=== PATIENT | female | born 1975 | race Two or more races ===

== ENCOUNTER 2018-04-06 15:51 | Inpatient (IN) | payer SELFPAY ==
[~2018-04-06] VITALS: Ht 172.7 cm; Wt 80.8 kg
--- NOTE | 2018-04-06 17:07 | PHYS DOC ---
Past Medical History Past Medical History: Alcoholism, Hypertension Past Surgical History: No Surgical History Alcohol Use: Heavy Drug Use: None Social History Narrative: denies Adult General Chief Complaint Chief Complaint: ALCOHOL INTOXICATION HPI HPI 42-year-old female with history of alcoholism presents for evaluation of acute intoxication. Patient states she has "been on a franks for a month and a half". She reports prior to that had been sober for over a year. She is asking for detox assistance. Denies other concerns. She reports drink 1-1/2 pints of vodka , last drink was at approximately 2 PM today. She does have history of seizures with detox. Review of Systems Review of Systems Constitutional: Denies fever or chills [] Eyes: Denies change in visual acuity, redness, or eye pain [] HENT: Denies nasal congestion or sore throat [] Respiratory: Denies cough or shortness of breath [] Cardiovascular: No additional information not addressed in HPI [] Endocrine: Denies polyuria or polydipsia [] All other systems were reviewed and found to be within normal limits, except as documented in this note. Current Medications Current Medications Current Medications Medications (Trade) Dose Ordered Sig/Yolanda Start Time Stop Time Status Last Admin Dose Admin Ondansetron HCl (Zofran) 4 mg 1X ONCE 04/06/18 17:15 04/06/18 17:16 DC 04/06/18 17:24 4 MG Sodium Chloride 1,000 ml @ 1,000 mls/hr 1X ONCE 04/06/18 17:15 04/06/18 18:14 DC 04/06/18 17:22 1,000 MLS/HR Allergies Allergies Allergies Coded Allergies Type Severity Reaction Last Updated Verified No Known Drug Allergies 04/06/18 No Physical Exam Physical Exam Constitutional: Well developed, well nourished, no acute distress, non-toxic appearance. [] Neck: Normal range of motion, no tenderness, supple, no stridor. [] Cardiovascular:Heart regular rhythm, TACHYCARDIC, no murmur [] Lungs & Thorax: Bilateral breath sounds clear to auscultation [] Abdomen: Bowel sounds normal, soft, no tenderness, no masses, no pulsatile masses. [] Skin: Warm, dry, no erythema, no rash. [] Neurologic: Alert and oriented X 3, normal motor function, normal sensory function, no focal deficits noted. [] Psychologic: Affect normal, judgement normal, mood normal. [] Current Patient Data Vital Signs Vital Signs Date Time Temp Pulse Resp B/P (MAP) Pulse Ox O2 Delivery O2 Flow Rate FiO2 04/06/18 17:26 114 20 160/93 (115) 98 Nasal Cannula 2.0 04/06/18 16:14 99.7 99.7 Lab Values Laboratory Tests Test 04/06/18 17:00 White Blood Count 8.0 x10^3/uL (4.0-11.0) Red Blood Count 4.64 x10^6/uL (3.50-5.40) Hemoglobin 14.2 g/dL (12.0-15.5) Hematocrit 42.1 % (36.0-47.0) Mean Corpuscular Volume 91 fL (79-100) Mean Corpuscular Hemoglobin 31 pg (25-35) Mean Corpuscular Hemoglobin Concent 34 g/dL (31-37) Red Cell Distribution Width 17.9 % (11.5-14.5) H Platelet Count 236 x10^3/uL (140-400) Neutrophils (%) (Auto) 63 % (31-73) Lymphocytes (%) (Auto) 28 % (24-48) Monocytes (%) (Auto) 7 % (0-9) Eosinophils (%) (Auto) 0 % (0-3) Basophils (%) (Auto) 2 % (0-3) Neutrophils # (Auto) 5.1 x10^3uL (1.8-7.7) Lymphocytes # (Auto) 2.3 x10^3/uL (1.0-4.8) Monocytes # (Auto) 0.6 x10^3/uL (0.0-1.1) Eosinophils # (Auto) 0.0 x10^3/uL (0.0-0.7) Basophils # (Auto) 0.1 x10^3/uL (0.0-0.2) Sodium Level 143 mmol/L (136-145) Potassium Level 3.8 mmol/L (3.5-5.1) Chloride Level 99 mmol/L (98-107) Carbon Dioxide Level 24 mmol/L (21-32) Anion Gap 20 (6-14) H Blood Urea Nitrogen 22 mg/dL (7-20) H Creatinine 0.9 mg/dL (0.6-1.0) Estimated GFR (Cockcroft-Gault) 68.0 BUN/Creatinine Ratio 24 (6-20) H Glucose Level 89 mg/dL (70-99) Calcium Level 8.9 mg/dL (8.5-10.1) Total Bilirubin 0.3 mg/dL (0.2-1.0) Aspartate Amino Transferase (AST) 80 U/L (15-37) H Alanine Aminotransferase (ALT) 80 U/L (14-59) H Alkaline Phosphatase 111 U/L (46-116) Total Protein 8.7 g/dL (6.4-8.2) H Albumin 4.4 g/dL (3.4-5.0) Albumin/Globulin Ratio 1.0 (1.0-1.7) Salicylates Level < 2.8 mg/dL (2.8-20.0) L Salicylate Last Dose Date Unk Salicylate Last Dose Time Unk Acetaminophen Level < 2 mcg/ml (10-30) L Acetaminophen Last Dose Date Unk Acetaminophen Last Dose Time Unk Ethyl Alcohol Level 317 mg/dL (0-10) H Laboratory Tests 04/06/18 17:00 Laboratory Tests 04/06/18 17:00 EKG EKG [] Radiology/Procedures Radiology/Procedures [] Course & Med Decision Making Course & Med Decision Making Pertinent Labs and Imaging studies reviewed. (See chart for details) [PATS consult done in the emergency room, because patient has had a seizure in the past for detox, patient will need to be admitted for medical clearance. Alcohol level at this time is 317. Patient agrees with and understands need for admission. Spoke c Dr Jensen who admitted pt] Dragon Disclaimer Dragon Disclaimer This electronic medical record was generated, in whole or in part, using a voice recognition dictation system. Departure Departure Impression: Primary Impression: Alcohol intoxication Disposition: ADMITTED INPATIENT Condition: STABLE Referrals: MARIAELENA JENSEN MD Scripts No Active Prescriptions or Reported Meds CARRINGTON LINK APRN Apr 06, 2018 17:07
[2018-04-06] MEDS ORDERED: IV NORMAL SALINE 1000ML BAG 1,000 ML IV ONE (17:15)
[2018-04-06] MEDS ORDERED: ONDANSETRON PF 4 MG/2 ML VIAL. IV ONE (17:15)
[2018-04-06 17:17] LABS: BASO # 0.1 x10^3/uL (0.0-0.2); BASO % 2 % (0-3); EOS % 0 % (0-3); HEMATOCRIT 42.1 % (36.0-47.0); HEMOGLOBIN 14.2 g/dL (12.0-15.5); LYMPH # 2.3 x10^3/uL (1.0-4.8); LYMPH % 28 % (24-48); MEAN CORPUSCULAR HEMOGLOBIN 31 pg (25-35); MEAN CORPUSCULAR HGB CONC 34 g/dL (31-37); MEAN CORPUSCULAR VOLUME 91 fL (79-100); MONO # 0.6 x10^3/uL (0.0-1.1); MONO % 7 % (0-9); NEUT # 5.1 x10^3uL (1.8-7.7); NEUT % 63 % (31-73); PLATELET COUNT 236 x10^3/uL (140-400); RED BLOOD COUNT 4.64 x10^6/uL (3.50-5.40); RED CELL DISTRIBUTION WIDTH 17.9 % (11.5-14.5)
[2018-04-06 17:32] LABS: CALCIUM 8.9 mg/dL (8.5-10.1); CREATININE 0.9 mg/dL (0.6-1.0); POTASSIUM 3.8 mmol/L (3.5-5.1)
[2018-04-06 17:44] LABS: ALBUMIN 4.4 g/dL (3.4-5.0); TOTAL BILIRUBIN 0.3 mg/dL (0.2-1.0); TOTAL PROTEIN 8.7 g/dL (6.4-8.2)
[2018-04-06 17:49] LABS: ACETAMIN < 2 mcg/ml (10-30); ETHANOL 317 mg/dL (0-10); SALIC < 2.8 mg/dL (2.8-20.0)
[2018-04-06] MEDS ORDERED: ONDANSETRON PF 4 MG/2 ML VIAL. IV PRN ×2 (18:45→21:00)
[2018-04-06 19:59] LABS: BARBITURATES NEG (NEG); BENZODIAZEPINES NEG (NEG); CANNABINOIDS NEG (NEG); COCAINE NEG (NEG); METHADONE NEG (NEG); OPIATES POS (NEG); PHENCYCLIDINE NEG (NEG)
[2018-04-06 20:00] LABS: AMPHETAMINE/METHAMPHETAMINE POS (NEG)
[2018-04-06 20:30] VITALS: BP 161/99
[2018-04-06] MEDS: SENNOSIDES/DOCUSATE 8.6/50MG TABLET. PO SCH (21:00)
[2018-04-06] MEDS ORDERED: LACTULOSE 20 GM/30 ML SOLUTION. PO PRN (21:00)
[2018-04-06] MEDS ORDERED: cloNIDine HCL 0.1 MG TABLET PO PRN (21:00)
[2018-04-06] MEDS: HEPARIN for SUB-Q USE 5,000 UNIT/ML VIAL. SQ SCH (21:00)
[2018-04-06] MEDS ORDERED: LABETALOL 20 MG/4 ML DISP.SYRIN. IVP PRN (21:00)
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
[2018-04-06 22:33] VITALS: BP 123/87
[2018-04-06] MEDS: MULTIVIT INFUSN,ADULT 4,VIT K 10 ML, THIAMINE INJ 100 MG, FOLIC ACID INJ 1 MG in IV NOR... IV SCH (23:03)
[2018-04-07] VITALS (7 sets, daily range): BP systolic 128–160; BP diastolic 84–99
[2018-04-07] MEDS: LORazepam 1 MG TABLET PO PRN ×4 (04:28→20:34)
[2018-04-07 06:35] LABS: CREATININE 0.6 mg/dL (0.6-1.0); GFR 108.6; POTASSIUM 3.2 mmol/L (3.5-5.1)
[2018-04-07] MEDS ORDERED: POTASSIUM CHLORIDE 20 MEQ TABLET.ER. PO ONE (08:45)
[2018-04-07] MEDS: MULTIVIT INFUSN,ADULT 4,VIT K 10 ML, THIAMINE INJ 100 MG, FOLIC ACID INJ 1 MG in IV NOR... IV SCH (09:03)
[2018-04-07] MEDS: HEPARIN for SUB-Q USE 5,000 UNIT/ML VIAL. SQ SCH ×2 (09:03→20:34)
[2018-04-07] MEDS: SENNOSIDES/DOCUSATE 8.6/50MG TABLET. PO SCH ×2 (09:04→20:34)
[2018-04-07] MEDS: ACETAMINOPHEN 325 MG TABLET. PO PRN ×2 (09:09→15:56)
--- NOTE | 2018-04-07 11:21 | PDOC ---
PROGRESS NOTES Chief Complaint Chief Complaint Alcohol withdrawal - ready/eager to quit Alcohol intoxication - IVF, banana bag x5. PAT team for ETOH abuse resources Amphetamine intoxication - she is unaware of amphetamine use per history. Will use clonidine, ativan Heroin intoxication - not overdose, will monitor. warm compress to left AC fossa HTN Urgency History of Present Illness History of Present Illness Still very drowsy, has not ambulated Ate only 20% Falls asleep in my interaction today with her Alcohol levels 317 Potassium low at 3.2 Plan: KCl 40 by mouth 1 PT OT when more awake Not ready to discharge today as very sleepy, has not ambulated She drinks 1.5-2 vodkas every day She does not want to lose her son-resources for AA referral has been given Seemingly interested to quit etoh Vitals Vitals Vital Signs Date Time Temp Pulse Resp B/P (MAP) Pulse Ox O2 Delivery O2 Flow Rate FiO2 04/07/18 10:37 97.5 102 20 137/86 (103) 97 Room Air 97.5 04/06/18 18:49 2.0 Physical Exam General: No acute distress, Other (Drowsy) Heart: Regular rate, Normal S1, Normal S2, Other (slightly tachycardic) Lungs: Clear Abdomen: Normal bowel sounds, Soft, No tenderness, No hepatosplenomegaly, No masses Extremities: No clubbing, No edema, Normal pulses, Other (left AC fossa with thrombophlebitis) Skin: No rashes, No breakdown, No significant lesion, Other (Left AC fossa red) Labs LABS Laboratory Tests Test 04/06/18 17:00 04/06/18 19:35 04/06/18 19:41 04/07/18 05:30 White Blood Count 8.0 x10^3/uL (4.0-11.0) Red Blood Count 4.64 x10^6/uL (3.50-5.40) Hemoglobin 14.2 g/dL (12.0-15.5) Hematocrit 42.1 % (36.0-47.0) Mean Corpuscular Volume 91 fL (79-100) Mean Corpuscular Hemoglobin 31 pg (25-35) Mean Corpuscular Hemoglobin Concent 34 g/dL (31-37) Red Cell Distribution Width 17.9 % (11.5-14.5) Platelet Count 236 x10^3/uL (140-400) Neutrophils (%) (Auto) 63 % (31-73) Lymphocytes (%) (Auto) 28 % (24-48) Monocytes (%) (Auto) 7 % (0-9) Eosinophils (%) (Auto) 0 % (0-3) Basophils (%) (Auto) 2 % (0-3) Neutrophils # (Auto) 5.1 x10^3uL (1.8-7.7) Lymphocytes # (Auto) 2.3 x10^3/uL (1.0-4.8) Monocytes # (Auto) 0.6 x10^3/uL (0.0-1.1) Eosinophils # (Auto) 0.0 x10^3/uL (0.0-0.7) Basophils # (Auto) 0.1 x10^3/uL (0.0-0.2) Sodium Level 143 mmol/L (136-145) 142 mmol/L (136-145) Potassium Level 3.8 mmol/L (3.5-5.1) 3.2 mmol/L (3.5-5.1) Chloride Level 99 mmol/L (98-107) 101 mmol/L (98-107) Carbon Dioxide Level 24 mmol/L (21-32) 27 mmol/L (21-32) Anion Gap 20 (6-14) 14 (6-14) Blood Urea Nitrogen 22 mg/dL (7-20) 14 mg/dL (7-20) Creatinine 0.9 mg/dL (0.6-1.0) 0.6 mg/dL (0.6-1.0) Estimated GFR (Cockcroft-Gault) 68.0 108.6 BUN/Creatinine Ratio 24 (6-20) Glucose Level 89 mg/dL (70-99) 74 mg/dL (70-99) Calcium Level 8.9 mg/dL (8.5-10.1) 8.0 mg/dL (8.5-10.1) Total Bilirubin 0.3 mg/dL (0.2-1.0) Aspartate Amino Transf (AST/SGOT) 80 U/L (15-37) Alanine Aminotransferase (ALT/SGPT) 80 U/L (14-59) Alkaline Phosphatase 111 U/L (46-116) Total Protein 8.7 g/dL (6.4-8.2) Albumin 4.4 g/dL (3.4-5.0) Albumin/Globulin Ratio 1.0 (1.0-1.7) Salicylates Level < 2.8 mg/dL (2.8-20.0) Salicylate Last Dose Date Unk Salicylate Last Dose Time Unk Acetaminophen Level < 2 mcg/ml (10-30) Acetaminophen Last Dose Date Unk Acetaminophen Last Dose Time Unk Ethyl Alcohol Level 317 mg/dL (0-10) Urine Opiates Screen Pos (NEG) Urine Methadone Screen Neg (NEG) Urine Barbiturates Neg (NEG) Urine Phencyclidine Screen Neg (NEG) Urine Amphetamine/Methamphetamine Pos (NEG) Urine Benzodiazepines Screen Neg (NEG) Urine Cocaine Screen Neg (NEG) Urine Cannabinoids Screen Neg (NEG) Urine Ethyl Alcohol Pos (NEG) Bedside Urine HCG, Qualitative Hcg negative (Negative) Review of Systems Review of Systems drowsy hence limited ROS Assessment and Plan Assessmemt and Plan Problems Medical Problems: (1) Alcohol intoxication Status: Acute Comment Review of Relevant I have reviewed the following items sandra (where applicable) has been applied. Labs Laboratory Tests Test 04/06/18 17:00 04/06/18 19:35 04/06/18 19:41 04/07/18 05:30 White Blood Count 8.0 x10^3/uL (4.0-11.0) Red Blood Count 4.64 x10^6/uL (3.50-5.40) Hemoglobin 14.2 g/dL (12.0-15.5) Hematocrit 42.1 % (36.0-47.0) Mean Corpuscular Volume 91 fL (79-100) Mean Corpuscular Hemoglobin 31 pg (25-35) Mean Corpuscular Hemoglobin Concent 34 g/dL (31-37) Red Cell Distribution Width 17.9 % (11.5-14.5) Platelet Count 236 x10^3/uL (140-400) Neutrophils (%) (Auto) 63 % (31-73) Lymphocytes (%) (Auto) 28 % (24-48) Monocytes (%) (Auto) 7 % (0-9) Eosinophils (%) (Auto) 0 % (0-3) Basophils (%) (Auto) 2 % (0-3) Neutrophils # (Auto) 5.1 x10^3uL (1.8-7.7) Lymphocytes # (Auto) 2.3 x10^3/uL (1.0-4.8) Monocytes # (Auto) 0.6 x10^3/uL (0.0-1.1) Eosinophils # (Auto) 0.0 x10^3/uL (0.0-0.7) Basophils # (Auto) 0.1 x10^3/uL (0.0-0.2) Sodium Level 143 mmol/L (136-145) 142 mmol/L (136-145) Potassium Level 3.8 mmol/L (3.5-5.1) 3.2 mmol/L (3.5-5.1) Chloride Level 99 mmol/L (98-107) 101 mmol/L (98-107) Carbon Dioxide Level 24 mmol/L (21-32) 27 mmol/L (21-32) Anion Gap 20 (6-14) 14 (6-14) Blood Urea Nitrogen 22 mg/dL (7-20) 14 mg/dL (7-20) Creatinine 0.9 mg/dL (0.6-1.0) 0.6 mg/dL (0.6-1.0) Estimated GFR (Cockcroft-Gault) 68.0 108.6 BUN/Creatinine Ratio 24 (6-20) Glucose Level 89 mg/dL (70-99) 74 mg/dL (70-99) Calcium Level 8.9 mg/dL (8.5-10.1) 8.0 mg/dL (8.5-10.1) Total Bilirubin 0.3 mg/dL (0.2-1.0) Aspartate Amino Transf (AST/SGOT) 80 U/L (15-37) Alanine Aminotransferase (ALT/SGPT) 80 U/L (14-59) Alkaline Phosphatase 111 U/L (46-116) Total Protein 8.7 g/dL (6.4-8.2) Albumin 4.4 g/dL (3.4-5.0) Albumin/Globulin Ratio 1.0 (1.0-1.7) Salicylates Level < 2.8 mg/dL (2.8-20.0) Salicylate Last Dose Date Unk Salicylate Last Dose Time Unk Acetaminophen Level < 2 mcg/ml (10-30) Acetaminophen Last Dose Date Unk Acetaminophen Last Dose Time Unk Ethyl Alcohol Level 317 mg/dL (0-10) Urine Opiates Screen Pos (NEG) Urine Methadone Screen Neg (NEG) Urine Barbiturates Neg (NEG) Urine Phencyclidine Screen Neg (NEG) Urine Amphetamine/Methamphetamine Pos (NEG) Urine Benzodiazepines Screen Neg (NEG) Urine Cocaine Screen Neg (NEG) Urine Cannabinoids Screen Neg (NEG) Urine Ethyl Alcohol Pos (NEG) Bedside Urine HCG, Qualitative Hcg negative (Negative) Laboratory Tests Test 04/06/18 17:00 04/06/18 19:35 04/06/18 19:41 04/07/18 05:30 White Blood Count 8.0 x10^3/uL (4.0-11.0) Red Blood Count 4.64 x10^6/uL (3.50-5.40) Hemoglobin 14.2 g/dL (12.0-15.5) Hematocrit 42.1 % (36.0-47.0) Mean Corpuscular Volume 91 fL (79-100) Mean Corpuscular Hemoglobin 31 pg (25-35) Mean Corpuscular Hemoglobin Concent 34 g/dL (31-37) Red Cell Distribution Width 17.9 % (11.5-14.5) Platelet Count 236 x10^3/uL (140-400) Neutrophils (%) (Auto) 63 % (31-73) Lymphocytes (%) (Auto) 28 % (24-48) Monocytes (%) (Auto) 7 % (0-9) Eosinophils (%) (Auto) 0 % (0-3) Basophils (%) (Auto) 2 % (0-3) Neutrophils # (Auto) 5.1 x10^3uL (1.8-7.7) Lymphocytes # (Auto) 2.3 x10^3/uL (1.0-4.8) Monocytes # (Auto) 0.6 x10^3/uL (0.0-1.1) Eosinophils # (Auto) 0.0 x10^3/uL (0.0-0.7) Basophils # (Auto) 0.1 x10^3/uL (0.0-0.2) Sodium Level 143 mmol/L (136-145) 142 mmol/L (136-145) Potassium Level 3.8 mmol/L (3.5-5.1) 3.2 mmol/L (3.5-5.1) Chloride Level 99 mmol/L (98-107) 101 mmol/L (98-107) Carbon Dioxide Level 24 mmol/L (21-32) 27 mmol/L (21-32) Anion Gap 20 (6-14) 14 (6-14) Blood Urea Nitrogen 22 mg/dL (7-20) 14 mg/dL (7-20) Creatinine 0.9 mg/dL (0.6-1.0) 0.6 mg/dL (0.6-1.0) Estimated GFR (Cockcroft-Gault) 68.0 108.6 BUN/Creatinine Ratio 24 (6-20) Glucose Level 89 mg/dL (70-99) 74 mg/dL (70-99) Calcium Level 8.9 mg/dL (8.5-10.1) 8.0 mg/dL (8.5-10.1) Total Bilirubin 0.3 mg/dL (0.2-1.0) Aspartate Amino Transf (AST/SGOT) 80 U/L (15-37) Alanine Aminotransferase (ALT/SGPT) 80 U/L (14-59) Alkaline Phosphatase 111 U/L (46-116) Total Protein 8.7 g/dL (6.4-8.2) Albumin 4.4 g/dL (3.4-5.0) Albumin/Globulin Ratio 1.0 (1.0-1.7) Salicylates Level < 2.8 mg/dL (2.8-20.0) Salicylate Last Dose Date Unk Salicylate Last Dose Time Unk Acetaminophen Level < 2 mcg/ml (10-30) Acetaminophen Last Dose Date Unk Acetaminophen Last Dose Time Unk Ethyl Alcohol Level 317 mg/dL (0-10) Urine Opiates Screen Pos (NEG) Urine Methadone Screen Neg (NEG) Urine Barbiturates Neg (NEG) Urine Phencyclidine Screen Neg (NEG) Urine Amphetamine/Methamphetamine Pos (NEG) Urine Benzodiazepines Screen Neg (NEG) Urine Cocaine Screen Neg (NEG) Urine Cannabinoids Screen Neg (NEG) Urine Ethyl Alcohol Pos (NEG) Bedside Urine HCG, Qualitative Hcg negative (Negative) Medications Current Medications Sodium Chloride 1,000 ml @ 1,000 mls/hr 1X ONCE IV Last administered on 04/06at 17:22; Start 04/06/18 at 17:15; Stop 04/06/18 at 18:14; Status DC Ondansetron HCl (Zofran) 4 mg 1X ONCE IV Last administered on 04/06/18at 17:24 ; Start 04/06/18 at 17:15; Stop 04/06/18 at 17:16; Status DC Ondansetron HCl (Zofran) 4 mg PRN Q8HRS PRN IV NAUSEA/VOMITING; Start at 18:45; Stop 04/07/18 at 18:44 Ondansetron HCl (Zofran) 4 mg PRN Q6HRS PRN IV NAUSEA/VOMITING; Start at 21:00 Acetaminophen (Tylenol) 650 mg PRN Q6HRS PRN PO Headaches, Temp > 101.5F Last administered on 04/07/18at 09:09; Start 04/06/18 at 21:00 Senna/Docusate Sodium (Senna Plus) 1 tab BID PO ; Start 04/06/18 at 21:00 Lactulose (Lactulose) 20 gm PRN Q12HR PRN PO CONSTIPATION; Start 04/06/18 at 21:00 Heparin Sodium (Porcine) (Heparin Sodium) 5,000 unit Q12HR SQ ; Start 04/06/18 at 21:00 Multivitamins 10 ml/Thiamine HCl 100 mg/Folic Acid 1 mg/Sodium Chloride 1,011.2 ml @ 100 mls/ hr DAILY IV Last administered on 04/07/18at 09:03; Start at 23:00; Stop 04/10/18 at 19:07 Lorazepam (Ativan) 4 mg PRN Q1HR PRN PO For CIWA 8-14 Last administered on at 09:10; Start 04/06/18 at 21:00 Lorazepam (Ativan) 4 mg PRN Q1HR PRN IV For CIWA 15 or greater Last administered on 04/06/18at 21:12; Start 04/06/18 at 21:00 Clonidine HCl (Catapres) 0.1 mg PRN Q1HR PRN PO SBP > 180 or DBP > 100, MRX3; Start 04/06/18 at 21:00 Labetalol HCl (Normodyne Iv Push) 10 mg PRN Q2HR PRN IVP HYPERTENSION, SEE COMMENTS; Start 04/06/18 at 21:00 Potassium Chloride (Klor-Con) 40 meq 1X ONCE PO Last administered on at 09:02; Start 04/07/18 at 08:45; Stop 04/07/18 at 08:46; Status DC Active Scripts Active No Active Prescriptions or Reported Medications Vitals/I & O Vital Sign - Last 24 Hours 04/06/18 04/06/18 04/06/18 04/06/18 16:14 17:26 18:49 19:50 Temp 99.7 99.7 Pulse 119 114 109 104 Resp 20 20 16 18 B/P (MAP) 139/95 (110) 160/93 (115) 165/95 (118) 167/102 (123) Pulse Ox 98 97 97 O2 Delivery Room Air Nasal Cannula Nasal Cannula Room Air O2 Flow Rate 2.0 2.0 04/06/18 04/06/18 04/06/18 04/07/18 20:30 20:49 22:33 03:04 Temp 98.5 97.7 98.1 98.5 97.7 98.1 Pulse 99 105 104 Resp 18 18 19 B/P (MAP) 161/99 (119) 123/87 (99) 160/99 (119) Pulse Ox 93 96 98 O2 Delivery Room Air Room Air Room Air Room Air 04/07/18 04/07/18 04/07/18 03:25 07:00 10:37 Temp 97.6 97.5 97.6 97.5 Pulse 90 87 102 Resp 18 20 B/P (MAP) 128/84 (99) 138/99 (112) 137/86 (103) Pulse Ox 98 97 O2 Delivery Room Air Room Air Intake and Output 04/06/18 04/06/18 04/07/18 15:00 23:00 07:00 Intake Total 1000 ml 500 ml Output Total 400 ml Balance 600 ml 500 ml MEGHANN DE LEON MD Apr 07, 2018 11:21
[2018-04-08 03:00] VITALS: BP 132/96
[2018-04-08 05:53] LABS: CALCIUM 8.8 mg/dL (8.5-10.1); CREATININE 0.6 mg/dL (0.6-1.0); GFR 108.6; POTASSIUM 3.2 mmol/L (3.5-5.1)
[2018-04-08 07:00] VITALS: BP 131/84
[2018-04-08] MEDS: MULTIVIT INFUSN,ADULT 4,VIT K 10 ML, THIAMINE INJ 100 MG, FOLIC ACID INJ 1 MG in IV NOR... IV SCH (08:35)
[2018-04-08] MEDS: LORazepam 1 MG TABLET PO PRN ×2 (08:35→12:22)
[2018-04-08] MEDS: HEPARIN for SUB-Q USE 5,000 UNIT/ML VIAL. SQ SCH (08:36)
[2018-04-08] MEDS: SENNOSIDES/DOCUSATE 8.6/50MG TABLET. PO SCH (08:36)
[2018-04-08] MEDS ORDERED: CHLO1CAP PO (08:51)
[2018-04-08] MEDS ORDERED: POTASSIUM CHLORIDE 20 MEQ TABLET.ER. PO ONE (09:00)
--- NOTE | 2018-04-08 10:43 | PDOC3 ---
Discharge Summary Visit Information Date of Admission: Apr 06, 2018 Date of Discharge: Apr 08, 2018 Admitting Diagnosis Comment: Alcohol withdrawal - ready/eager to quit Amphetamine positive HTN Urgency Final Diagnosis Problems Medical Problems: (1) Alcohol intoxication Status: Acute Brief Hospital Course Allergies Allergies Coded Allergies Type Severity Reaction Last Updated Verified No Known Drug Allergies 04/06/18 No Vital Signs Vital Signs Date Time Temp Pulse Resp B/P (MAP) Pulse Ox O2 Delivery O2 Flow Rate FiO2 04/08/18 07:00 97.7 85 20 131/84 (100) 98 Room Air 97.7 Lab Results Laboratory Tests Test 04/06/18 17:00 04/06/18 19:35 04/06/18 19:41 04/07/18 05:30 White Blood Count 8.0 x10^3/uL (4.0-11.0) Red Blood Count 4.64 x10^6/uL (3.50-5.40) Hemoglobin 14.2 g/dL (12.0-15.5) Hematocrit 42.1 % (36.0-47.0) Mean Corpuscular Volume 91 fL (79-100) Mean Corpuscular Hemoglobin 31 pg (25-35) Mean Corpuscular Hemoglobin Concent 34 g/dL (31-37) Red Cell Distribution Width 17.9 % (11.5-14.5) Platelet Count 236 x10^3/uL (140-400) Neutrophils (%) (Auto) 63 % (31-73) Lymphocytes (%) (Auto) 28 % (24-48) Monocytes (%) (Auto) 7 % (0-9) Eosinophils (%) (Auto) 0 % (0-3) Basophils (%) (Auto) 2 % (0-3) Neutrophils # (Auto) 5.1 x10^3uL (1.8-7.7) Lymphocytes # (Auto) 2.3 x10^3/uL (1.0-4.8) Monocytes # (Auto) 0.6 x10^3/uL (0.0-1.1) Eosinophils # (Auto) 0.0 x10^3/uL (0.0-0.7) Basophils # (Auto) 0.1 x10^3/uL (0.0-0.2) Sodium Level 143 mmol/L (136-145) 142 mmol/L (136-145) Potassium Level 3.8 mmol/L (3.5-5.1) 3.2 mmol/L (3.5-5.1) Chloride Level 99 mmol/L (98-107) 101 mmol/L (98-107) Carbon Dioxide Level 24 mmol/L (21-32) 27 mmol/L (21-32) Anion Gap 20 (6-14) 14 (6-14) Blood Urea Nitrogen 22 mg/dL (7-20) 14 mg/dL (7-20) Creatinine 0.9 mg/dL (0.6-1.0) 0.6 mg/dL (0.6-1.0) Estimated GFR (Cockcroft-Gault) 68.0 108.6 BUN/Creatinine Ratio 24 (6-20) Glucose Level 89 mg/dL (70-99) 74 mg/dL (70-99) Calcium Level 8.9 mg/dL (8.5-10.1) 8.0 mg/dL (8.5-10.1) Total Bilirubin 0.3 mg/dL (0.2-1.0) Aspartate Amino Transf (AST/SGOT) 80 U/L (15-37) Alanine Aminotransferase (ALT/SGPT) 80 U/L (14-59) Alkaline Phosphatase 111 U/L (46-116) Total Protein 8.7 g/dL (6.4-8.2) Albumin 4.4 g/dL (3.4-5.0) Albumin/Globulin Ratio 1.0 (1.0-1.7) Salicylates Level < 2.8 mg/dL (2.8-20.0) Salicylate Last Dose Date Unk Salicylate Last Dose Time Unk Acetaminophen Level < 2 mcg/ml (10-30) Acetaminophen Last Dose Date Unk Acetaminophen Last Dose Time Unk Ethyl Alcohol Level 317 mg/dL (0-10) Urine Opiates Screen Pos (NEG) Urine Methadone Screen Neg (NEG) Urine Barbiturates Neg (NEG) Urine Phencyclidine Screen Neg (NEG) Urine Amphetamine/Methamphetamine Pos (NEG) Urine Benzodiazepines Screen Neg (NEG) Urine Cocaine Screen Neg (NEG) Urine Cannabinoids Screen Neg (NEG) Urine Ethyl Alcohol Pos (NEG) Bedside Urine HCG, Qualitative Hcg negative (Negative) Test 04/08/18 05:07 Sodium Level 140 mmol/L (136-145) Potassium Level 3.2 mmol/L (3.5-5.1) Chloride Level 101 mmol/L (98-107) Carbon Dioxide Level 29 mmol/L (21-32) Anion Gap 10 (6-14) Blood Urea Nitrogen 13 mg/dL (7-20) Creatinine 0.6 mg/dL (0.6-1.0) Estimated GFR (Cockcroft-Gault) 108.6 Glucose Level 118 mg/dL (70-99) Calcium Level 8.8 mg/dL (8.5-10.1) Laboratory Tests Test 04/08/18 05:07 Sodium Level 140 mmol/L (136-145) Potassium Level 3.2 mmol/L (3.5-5.1) Chloride Level 101 mmol/L (98-107) Carbon Dioxide Level 29 mmol/L (21-32) Anion Gap 10 (6-14) Blood Urea Nitrogen 13 mg/dL (7-20) Creatinine 0.6 mg/dL (0.6-1.0) Estimated GFR (Cockcroft-Gault) 108.6 Glucose Level 118 mg/dL (70-99) Calcium Level 8.8 mg/dL (8.5-10.1) Brief Hospital Course Ms. Nicole is a 42 old female who unfortunately drinks 1.5 vodka Every day, admitted because of alcohol withdrawal symptoms. She does want to quit, she does not want to lose her son. She is interested in alcohol rehabilitation programs. We have provided resources. It took 2 days for her to not be confused and drowsy. I did Rx her some Librax. Rx on chart Patient seen and examined, dc < 30 mins Discharge Information Condition at Discharge: Improved, Stable Disposition/Orders: D/C to Home Scheduled Chlordiazepoxide/Clidinium Br (Librax Capsule) 1 Each Capsule, 1 CAP PO TID, # 30 Ref 3 Prescribed by: MEGHANN DE LEON on 04/08/18 0851 MEGHANN DE LEON MD Apr 08, 2018 10:43
[2018-04-08 11:00] VITALS: BP 161/116
== END 2018-04-08 13:02 | disposition home or self-care (01) | DRG 305 ==
LOC: ER 15:51 → 5 SOUTH 18:08 → EEVIPCON 18:08
PROVIDERS: ADMIT Internal Medicine; ATTEND Internal Medicine
DX: I16.0 Hypertensive urgency (principal); F10.239 Alcohol dependence with withdrawal, unspecified; F10.229 Alcohol dependence with intoxication, unspecified; F15.129 Other stimulant abuse with intoxication, unspecified; F17.210 Nicotine dependence, cigarettes, uncomplicated; I10 Essential (primary) hypertension
CPT/HCPCS: 36415; 80048; 80053; 80307; 80329; 81025; 85025; 96361; 96374; G0480; G6039; J2060; J2405; J7030; 99285-25; G0479

== ENCOUNTER 2019-10-08 21:44 | Inpatient (IN) | payer OTHER ==
[~2019-10-08] VITALS: Ht 172.7 cm; Wt 80.3 kg
[~2019-10-08 21:44] MED LIST: CHLO1CAP PO
--- NOTE | 2019-10-08 22:15 | PHYS DOC ---
Past Medical History Past Medical History: Alcoholism, Hypertension Past Surgical History: No Surgical History Smoking Status: Former Smoker Alcohol Use: Heavy Drug Use: None General Adult EDM: Chief Complaint: ALCOHOL INTOXICATION HPI: HPI: Patient is a 44 year old female who presents requesting for help with alcohol. Patient states that she is here for alcohol withdrawal but does indicate that she drank a large amount of alcohol today and is not sure how much. Patient has been on a binge of heavy drinking for at least the last couple of weeks, drinking vodka. Patient also indicates that she had injured her right foot about a month ago when she was walking. She is not able to give any further indicators to how was injured. Additional history is limited as patient is very intoxicated.[] Review of Systems: Review of Systems: Constitutional: Denies fever or chills. [] Respiratory: Denies cough or shortness of breath. [] Cardiovascular: Denies chest pain or edema. [] GI: Denies abdominal pain, nausea, vomiting or diarrhea. [] Neurologic: Denies headache, focal weakness or sensory changes. [] A full 10 point review of systems has been reviewed and is otherwise negative. Heart Score: Risk Factors: Risk Factors: DM, Current or recent (<one month) smoker, HTN, HLP, family history of CAD, obesity. Risk Scores: Score 0 - 3: 2.5% MACE over next 6 weeks - Discharge Home Score 4 - 6: 20.3% MACE over next 6 weeks - Admit for Clinical Observation Score 7 - 10: 72.7% MACE over next 6 weeks - Early Invasive Strategies Allergies: Allergies: Allergies Coded Allergies Type Severity Reaction Last Updated Verified No Known Drug Allergies 04/06/18 No Physical Exam: PE: Constitutional: Well developed, well nourished, strong smell of alcohol on breath and appears very intoxicated. [] HENT: Normocephalic, atraumatic, bilateral external ears normal, oropharynx moist, no oral exudates, nose normal. [] Eyes: PERRLA, EOMI, conjunctiva normal, no discharge. [] Neck: Normal range of motion, no tenderness, supple, no stridor. [] Cardiovascular: Mildly tachycardic rate with regular rhythm[] Lungs & Thorax: Bilateral breath sounds clear to auscultation [] Abdomen: Bowel sounds normal, soft, no tenderness. [] Skin: Warm, dry, no erythema, no rash. [] Extremities: No tenderness, no cyanosis, no clubbing, ROM intact, no edema. [] Neurologic: Awake and alert, intoxicated, no focal deficits noted. [] Psychologic: Flattened affect with depressed mood. [] EKG: EKG: [] Radiology/Procedures: Radiology/Procedures: [] Impression: PROCEDURE: ANKLE RIGHT 3V Right ankle x-rays 3 views HISTORY: Right ankle injury one month ago. Pain. FINDINGS: On the AP view there is a linear cortical fragment along the lateral cortex of the cuboid raise the possibility of a fracture although it is not well visualized on the foot x-rays. There is a chronic well-defined ossicle inferior the lateral malleolus likely due to an old injury. There is a cortical fragment along the dorsal aspect of the anterior talus suspicious for an acute or subacute fracture. No acute fracture of the fibula, tibia or talus dome or calcaneus. IMPRESSION: Small acute or subacute fracture fragment along the dorsal cortex of the anterior talus. Suspected small cortical fracture fragment of the cuboid. Right foot x-rays 3 views HISTORY: Right foot injury one month ago, pain. FINDINGS: Small fracture fragment dorsal cortex of the anterior talus. The remainder of the foot is intact. No dislocation. IMPRESSION: Small acute or subacute fracture fragment dorsal cortex of the anterior talus. The probable cuboid fracture fragment is seen to better detail on the dedicated ankle x-rays. Electronically signed by: Bebo Burnett MD (10/08/2019 11:48 PM) [id number] Course & Med Decision Making: Course & Med Decision Making Pertinent Labs and Imaging studies reviewed. (See chart for details) [] Dragon Disclaimer: Dragon Disclaimer: This electronic medical record was generated, in whole or in part, using a voice recognition dictation system. Departure Departure Impression: Primary Impression: Alcohol intoxication Qualified Codes: F10.929 - Alcohol use, unspecified with intoxication, unspecified Additional Impressions: Hypokalemia Fracture of talus of right ankle, closed Qualified Codes: S92.134A - Nondisplaced fracture of posterior process of right talus, initial encounter for closed fracture Cuboid fracture Qualified Codes: S92.211A - Displaced fracture of cuboid bone of right foot, initial encounter for closed fracture Disposition: 09 ADMITTED INPATIENT Admitting Physician: NIRANJAN Condition: GOOD Referrals: JOSEPHINE YANEZ MD (PCP) GUZMAN ALEJANDRO Jr. DO Oct 08, 2019 22:15
[2019-10-08 22:29] LABS: BASO # 0.1 x10^3/uL (0.0-0.2); BASO % 2 % (0-3); EOS # 0.1 x10^3/uL (0.0-0.7); EOS % 1 % (0-3); HEMATOCRIT 39.4 % (36.0-47.0); HEMOGLOBIN 12.8 g/dL (12.0-15.5); LYMPH # 3.8 x10^3/uL (1.0-4.8); LYMPH % 47 % (24-48); MEAN CORPUSCULAR HEMOGLOBIN 25 pg (25-35); MEAN CORPUSCULAR HGB CONC 32 g/dL (31-37); MEAN CORPUSCULAR VOLUME 77 fL (79-100); MONO # 0.3 x10^3/uL (0.0-1.1); MONO % 4 % (0-9); NEUT # 3.7 x10^3/uL (1.8-7.7); NEUT % 46 % (31-73); PLATELET COUNT 228 x10^3/uL (140-400); RED BLOOD COUNT 5.13 x10^6/uL (3.50-5.40); RED CELL DISTRIBUTION WIDTH 23.5 % (11.5-14.5)
[2019-10-08] MEDS ORDERED: ONDANSETRON PF 4 MG/2 ML VIAL. IVP ONE (22:30)
[2019-10-08 22:49] LABS: BILIRUBIN,URINE NEGATIVE (NEG); CLARITY,URINE CLEAR; COLOR,URINE YELLOW; NITRITE,URINE NEGATIVE (NEG); PROTEIN,URINE 30 mg/dL (NEG-TRACE); UROBILINOGEN,URINE 0.2 mg/dL (0.2 mg/dL)
[2019-10-08 22:57] LABS: BARBITURATES NEG (NEG); BENZODIAZEPINES NEG (NEG); CANNABINOIDS NEG (NEG); COCAINE NEG (NEG); METHADONE NEG (NEG); OPIATES NEG (NEG); PHENCYCLIDINE NEG (NEG)
[2019-10-08] MEDS ORDERED: MULTIVIT INFUSN,ADULT 4,VIT K 10 ML, THIAMINE INJ 100 MG, FOLIC ACID INJ 1 MG in IV NOR... IV ONE (23:00)
[2019-10-08 23:08] LABS: ALBUMIN 4.2 g/dL (3.4-5.0); CALCIUM 8.7 mg/dL (8.5-10.1); CREATININE 0.7 mg/dL (0.6-1.0); DIRECT BILIRUBIN 0.1 mg/dL (0.0-0.2); GFR 90.1; MAGNESIUM 1.8 mg/dL (1.8-2.4); TOTAL BILIRUBIN 0.5 mg/dL (0.2-1.0); TOTAL PROTEIN 8.9 g/dL (6.4-8.2)
[2019-10-08 23:14] LABS: U PREG PATIENT NEGATIVE (NEG)
[2019-10-08 23:17] LABS: BACTERIA,URINE 0 /HPF (0-FEW); RBC,URINE 0 /HPF (0-2); SQUAMOUS EPITHELIAL CELL,UR OCC /LPF; WBC,URINE 0 /HPF (0-4)
[2019-10-08 23:25] LABS: AMPHETAMINE/METHAMPHETAMINE POS (NEG)
[2019-10-08 23:43] LABS: POTASSIUM 2.8 mmol/L (3.5-5.1)
[2019-10-08] MEDS: POTASSIUM CHLORIDE 20 MEQ TABLET.ER. PO ONE (23:49)
--- NOTE | 2019-10-08 23:51 | RAD ---
Right ankle x-rays 3 views HISTORY: Right ankle injury one month ago. Pain. FINDINGS: On the AP view there is a linear cortical fragment along the lateral cortex of the cuboid raise the possibility of a fracture although it is not well visualized on the foot x-rays. There is a chronic well-defined ossicle inferior the lateral malleolus likely due to an old injury. There is a cortical fragment along the dorsal aspect of the anterior talus suspicious for an acute or subacute fracture. No acute fracture of the fibula, tibia or talus dome or calcaneus. IMPRESSION: Small acute or subacute fracture fragment along the dorsal cortex of the anterior talus. Suspected small cortical fracture fragment of the cuboid. Right foot x-rays 3 views HISTORY: Right foot injury one month ago, pain. FINDINGS: Small fracture fragment dorsal cortex of the anterior talus. The remainder of the foot is intact. No dislocation. IMPRESSION: Small acute or subacute fracture fragment dorsal cortex of the anterior talus. The probable cuboid fracture fragment is seen to better detail on the dedicated ankle x-rays. Electronically signed by: Bebo Burnett MD (10/08/2019 11:48 PM) [id number]
[2019-10-09] MEDS: POTASSIUM CHLORIDE 20 MEQ TABLET.ER. PO ONE
[2019-10-09] MEDS ORDERED: POTASSIUM CHLORIDE 20MEQ 100 ML IV ONE (00:15)
[2019-10-09] MEDS ORDERED: ONDANSETRON PF 4 MG/2 ML VIAL. IV PRN (00:15)
[2019-10-09] MEDS: POTASSIUM CHLORIDE 10MEQ 100 ML IV SCH ×2 (00:33→02:31)
[2019-10-09 00:58] LABS: HYPOCHROMIA SLIGHT; PLT ESTIMATE ADEQUATE (ADEQUATE)
[2019-10-09 00:59] LABS: MICROCYTOSIS SLIGHT; POIKILOCYTOSIS SLIGHT; STOMATOCYTES OCC
[2019-10-09 02:21] VITALS: BP 136/85
[2019-10-09] MEDS: IV NORMAL SALINE 1000ML BAG 1,000 ML IV SCH ×3 (02:31→17:34)
[2019-10-09 07:12] VITALS: BP 138/85
[2019-10-09 11:15] VITALS: BP 131/79
--- NOTE | 2019-10-09 12:03 | HP ---
ADMIT DATE: 10/09/2019 CHIEF COMPLAINT: Alcohol intoxication. HISTORY OF PRESENT ILLNESS: The patient is a pleasant 44-year-old female who presented with alcohol intoxication. She is requesting help. I believe she is unemployed currently. She works as a middle school assistant principal. She is also having some withdrawal symptoms because she drinks vodka quite heavily. She also fell a week ago and has a fractured foot. I discussed the case with ER physician. We are admitting the patient with alcohol withdrawal protocol and with consultation to social media editor for drug rehabilitation. PAST MEDICAL HISTORY: Alcoholism, hypertension, previous tobacco abuse. ALLERGIES: None. FAMILY HISTORY: Alcoholism. SOCIAL HISTORY: She drinks. She used to smoke. She works as a middle school assistant principal. I think she is unemployed. MEDICATIONS: Reviewed, please refer to the MRAD. REVIEW OF SYSTEMS: GENERAL: No history of weight change, weakness or fevers. SKIN: No bruising, hair changes or rashes. EYES: No blurred, double or loss of vision. NOSE AND THROAT: No history of nosebleeds, hoarseness or sore throat. HEART: No history of palpitations, chest pain or shortness of breath on exertion. LUNGS: Denies cough, hemoptysis, wheezing or shortness of breath. GASTROINTESTINAL: Denies changes in appetite, nausea, vomiting, diarrhea or constipation. GENITOURINARY: No history of frequency, urgency, hesitancy or nocturia. NEUROLOGIC: She complains of shaking. PSYCHIATRIC: No history of panic, anxiety or depression. ENDOCRINE: No history of heat or cold intolerance, polyuria or polydipsia. EXTREMITIES: Right lower extremity, she complains of right foot pain. PHYSICAL EXAMINATION: VITALS: Within normal limits and are stable. GENERAL: No apparent distress. Alert and oriented. HEENT: Normal cephalic atraumatic, external auditory canals are patent. EYES: Extraocular muscles are intact, pupils are equally round and reactive to light and accommodation. MUSCULOSKELETAL: Well developed, well nourished, good range of motion. ENDOCRINE: No thyromegaly was palpated. LYMPHATICS: No cervical chain or axillary nodes were noted. HEMATOPOIETIC: No bruising. NECK: Supple, no JVD, no thyromegaly was noted. LUNGS: Clear to auscultation in all lung calvert without rhonchi or wheezing. HEART: RRR, S1, S2 present. Peripheral pulses intact, no obvious murmurs were noted. ABDOMEN: Soft, nontender. Positive bowel sounds no organomegaly, normal bowel sounds. EXTREMITIES: Without any cyanosis, clubbing, or edema. Pedal pulses intact, Homans sign is negative. NEUROLOGIC: She is shaking. PSYCHIATRIC: Normal affect, normal mood. Stable. SKIN: No ulcerations or rashes, good skin turgor, no jaundice. VASCULAR: Good capillary refill, neurovascular bundle appears to be intact. LABORATORY DATA: Potassium is 2.8. ASSESSMENT AND PLAN: Alcohol withdrawal and hypokalemia. The patient is being admitted. We will do cardiac monitoring. Replace her potassium. Alcohol withdrawal protocol. Consult social media editor. Home meds, DVT prophylaxis. Full code. BRITTANI MENDEZ DO DR: KENTON/nelda JOB#: [id number] / [id number]
[2019-10-09 15:07] VITALS: BP 124/76
[2019-10-09] MEDS ORDERED: diphenhydrAMINE 50 MG/ML VIAL IVP PRN (16:45)
[2019-10-09] MEDS ORDERED: cloNIDine HCL 0.1 MG TABLET PO PRN (16:45)
[2019-10-09 17:41] LABS: ALBUMIN 3.6 g/dL (3.4-5.0); DIRECT BILIRUBIN 0.2 mg/dL (0.0-0.2); TOTAL BILIRUBIN 0.7 mg/dL (0.2-1.0); TOTAL PROTEIN 7.3 g/dL (6.4-8.2)
[2019-10-09 19:00] VITALS: BP 143/72
[2019-10-09 23:01] VITALS: BP 140/89
[2019-10-10 03:04] VITALS: BP 146/102
[2019-10-10 07:00] VITALS: BP 155/98
[2019-10-10] MEDS ORDERED: MULTIVIT INFUSN,ADULT 4,VIT K 10 ML, THIAMINE INJ 100 MG, FOLIC ACID INJ 1 MG in IV NOR... IV SCH (09:00)
[2019-10-10 10:47] VITALS: BP 158/94
--- NOTE | 2019-10-10 13:19 | PDOC ---
[facility] PROGRESS NOTE Chief Complaint Chief Complaint Severe alcohol withdrawal Hypertension Prior tobacco abuse Hypokalemia History of Present Illness History of Present Illness 10-10-2019 Patient seen and examined I ordered some new labs Discussed with RN Chart reviewed Patient would like to go to rehab Awaiting social worker school input Vitals/I&O Vitals/I&O: Vital Signs Date Time Temp Pulse Resp B/P (MAP) Pulse Ox O2 Delivery O2 Flow Rate FiO2 10/10/19 10:47 97.6 74 18 158/94 (115) 99 Room Air 97.6 l I & O 10/09/19 10/09/19 10/10/19 15:00 23:00 07:00 Intake Total 1000 ml Output Total 350 ml 100 ml 1300 ml Balance -350 ml -100 ml -300 ml Physical Exam General: Alert, Oriented X3, Other (Shaky) Heart: Regular rate, Normal S1 Lungs: Clear Abdomen: Normal bowel sounds Extremities: No clubbing, No cyanosis Skin: No rashes, No breakdown Labs Labs: Laboratory Tests Test 10/09/19 17:10 Total Bilirubin 0.7 mg/dL (0.2-1.0) Direct Bilirubin 0.2 mg/dL (0.0-0.2) Aspartate Amino Transf (AST/SGOT) 25 U/L (15-37) Alanine Aminotransferase (ALT/SGPT) 21 U/L (14-59) Alkaline Phosphatase 70 U/L (46-116) Total Protein 7.3 g/dL (6.4-8.2) Albumin 3.6 g/dL (3.4-5.0) Assessment and Plan Assessmemt and Plan Problems Medical Problems: (1) Alcohol intoxication Status: Acute (2) Cuboid fracture Status: Acute (3) Fracture of talus of right ankle, closed Status: Acute (4) Hypokalemia Status: Acute Severe alcohol withdrawal Hypertension Prior tobacco abuse Hypokalemia Plan Alcohol withdrawal protocol Await social worker school input Recheck labs PT OT DVT prophylaxis Full code Prognosis guarded if she does not quit drinking and I talked to her about the Comment Review of Relevant I have reviewed the following items sandra (where applicable) has been applied. Medications: Current Medications Medications (Trade) Dose Ordered Sig/Yolanda Route PRN Reason Start Time Stop Time Status Last Admin Dose Admin Multivitamins 10 ml/Thiamine HCl 100 mg/Folic Acid 1 mg/Sodium Chloride 1,011.2 ml @ 100 mls/ hr DAILY IV 10/10/19 09:00 10/11/19 08:59 10/10/19 08:26 BRITTANI MENDEZ III DO Oct 10, 2019 13:19
[2019-10-10] MEDS: HALOPERIDOL LACTATE 5 MG/ML VIAL. IVP PRN (13:41)
[2019-10-10 14:44] VITALS: BP 152/89
[2019-10-10 19:00] VITALS: BP 126/80
[2019-10-10 23:03] VITALS: BP 134/87
[2019-10-11 03:10] VITALS: BP 147/88
[2019-10-11 04:39] LABS: BASO % 1 % (0-3); EOS # 0.1 x10^3/uL (0.0-0.7); EOS % 2 % (0-3); HEMATOCRIT 32.5 % (36.0-47.0); HEMOGLOBIN 10.7 g/dL (12.0-15.5); LYMPH # 1.9 x10^3/uL (1.0-4.8); LYMPH % 38 % (24-48); MEAN CORPUSCULAR HEMOGLOBIN 26 pg (25-35); MEAN CORPUSCULAR HGB CONC 33 g/dL (31-37); MEAN CORPUSCULAR VOLUME 78 fL (79-100); MONO # 0.4 x10^3/uL (0.0-1.1); MONO % 8 % (0-9); NEUT # 2.5 x10^3/uL (1.8-7.7); NEUT % 51 % (31-73); PLATELET COUNT 127 x10^3/uL (140-400); RED BLOOD COUNT 4.17 x10^6/uL (3.50-5.40); RED CELL DISTRIBUTION WIDTH 23.3 % (11.5-14.5); WHITE BLOOD COUNT 4.9 x10^3/uL (4.0-11.0)
[2019-10-11 04:51] LABS: CALCIUM 8.5 mg/dL (8.5-10.1); CREATININE 0.6 mg/dL (0.6-1.0); GFR 107.6; POTASSIUM 3.8 mmol/L (3.5-5.1)
[2019-10-11 07:00] VITALS: BP 139/90
[2019-10-11] MEDS: FOLIC ACID 1 MG TABLET. PO SCH (08:11)
[2019-10-11] MEDS: MULTIVITAMIN with MINERAL TABLET. PO SCH (08:11)
[2019-10-11] MEDS: THIAMINE 100 MG TABLET. PO SCH (08:11)
[2019-10-11 11:00] VITALS: BP 134/84
--- NOTE | 2019-10-11 12:01 | PDOC ---
PROGRESS NOTES Chief Complaint Chief Complaint Severe alcohol withdrawal Hypertension Prior tobacco abuse Hypokalemia History of Present Illness History of Present Illness Ms Nicole is a 44yo F w/ PMHx ETOH abuse presented with alcohol intoxication, right ankle pain and help with alcohol detox. She also fell a week ago and has a fractured foot, has boot available 10/09: Patient seen and examined, would like to go to rehab She is drowsy today, CIWA still 8 currently. She has not been out of bed yet. No CP or SOB. Vitals Vitals Vital Signs Date Time Temp Pulse Resp B/P (MAP) Pulse Ox O2 Delivery O2 Flow Rate FiO2 10/11/19 08:00 Room Air 10/11/19 07:00 97.9 72 18 139/90 (106) 100 97.9 Physical Exam General: Alert, Oriented X3, Other (Shaky) Heart: Regular rate, Normal S1 Lungs: Clear Abdomen: Normal bowel sounds Extremities: No clubbing, No cyanosis Skin: No rashes, No breakdown Labs LABS Laboratory Tests Test 10/11/19 04:15 White Blood Count 4.9 x10^3/uL (4.0-11.0) Red Blood Count 4.17 x10^6/uL (3.50-5.40) Hemoglobin 10.7 g/dL (12.0-15.5) Hematocrit 32.5 % (36.0-47.0) Mean Corpuscular Volume 78 fL (79-100) Mean Corpuscular Hemoglobin 26 pg (25-35) Mean Corpuscular Hemoglobin Concent 33 g/dL (31-37) Red Cell Distribution Width 23.3 % (11.5-14.5) Platelet Count 127 x10^3/uL (140-400) Neutrophils (%) (Auto) 51 % (31-73) Lymphocytes (%) (Auto) 38 % (24-48) Monocytes (%) (Auto) 8 % (0-9) Eosinophils (%) (Auto) 2 % (0-3) Basophils (%) (Auto) 1 % (0-3) Neutrophils # (Auto) 2.5 x10^3/uL (1.8-7.7) Lymphocytes # (Auto) 1.9 x10^3/uL (1.0-4.8) Monocytes # (Auto) 0.4 x10^3/uL (0.0-1.1) Eosinophils # (Auto) 0.1 x10^3/uL (0.0-0.7) Basophils # (Auto) 0.0 x10^3/uL (0.0-0.2) Sodium Level 139 mmol/L (136-145) Potassium Level 3.8 mmol/L (3.5-5.1) Chloride Level 101 mmol/L (98-107) Carbon Dioxide Level 30 mmol/L (21-32) Anion Gap 8 (6-14) Blood Urea Nitrogen 11 mg/dL (7-20) Creatinine 0.6 mg/dL (0.6-1.0) Estimated GFR (Cockcroft-Gault) 107.6 Glucose Level 96 mg/dL (70-99) Calcium Level 8.5 mg/dL (8.5-10.1) Assessment and Plan Assessmemt and Plan Problems Medical Problems: (1) Alcohol intoxication Status: Acute (2) Cuboid fracture Status: Acute (3) Fracture of talus of right ankle, closed Status: Acute (4) Hypokalemia Status: Acute Comment Review of Relevant I have reviewed the following items sandra (where applicable) has been applied. Labs Laboratory Tests Test 10/09/19 17:10 10/11/19 04:15 Total Bilirubin 0.7 mg/dL (0.2-1.0) Direct Bilirubin 0.2 mg/dL (0.0-0.2) Aspartate Amino Transf (AST/SGOT) 25 U/L (15-37) Alanine Aminotransferase (ALT/SGPT) 21 U/L (14-59) Alkaline Phosphatase 70 U/L (46-116) Total Protein 7.3 g/dL (6.4-8.2) Albumin 3.6 g/dL (3.4-5.0) White Blood Count 4.9 x10^3/uL (4.0-11.0) Red Blood Count 4.17 x10^6/uL (3.50-5.40) Hemoglobin 10.7 g/dL (12.0-15.5) Hematocrit 32.5 % (36.0-47.0) Mean Corpuscular Volume 78 fL (79-100) Mean Corpuscular Hemoglobin 26 pg (25-35) Mean Corpuscular Hemoglobin Concent 33 g/dL (31-37) Red Cell Distribution Width 23.3 % (11.5-14.5) Platelet Count 127 x10^3/uL (140-400) Neutrophils (%) (Auto) 51 % (31-73) Lymphocytes (%) (Auto) 38 % (24-48) Monocytes (%) (Auto) 8 % (0-9) Eosinophils (%) (Auto) 2 % (0-3) Basophils (%) (Auto) 1 % (0-3) Neutrophils # (Auto) 2.5 x10^3/uL (1.8-7.7) Lymphocytes # (Auto) 1.9 x10^3/uL (1.0-4.8) Monocytes # (Auto) 0.4 x10^3/uL (0.0-1.1) Eosinophils # (Auto) 0.1 x10^3/uL (0.0-0.7) Basophils # (Auto) 0.0 x10^3/uL (0.0-0.2) Sodium Level 139 mmol/L (136-145) Potassium Level 3.8 mmol/L (3.5-5.1) Chloride Level 101 mmol/L (98-107) Carbon Dioxide Level 30 mmol/L (21-32) Anion Gap 8 (6-14) Blood Urea Nitrogen 11 mg/dL (7-20) Creatinine 0.6 mg/dL (0.6-1.0) Estimated GFR (Cockcroft-Gault) 107.6 Glucose Level 96 mg/dL (70-99) Calcium Level 8.5 mg/dL (8.5-10.1) Laboratory Tests Test 10/11/19 04:15 White Blood Count 4.9 x10^3/uL (4.0-11.0) Red Blood Count 4.17 x10^6/uL (3.50-5.40) Hemoglobin 10.7 g/dL (12.0-15.5) Hematocrit 32.5 % (36.0-47.0) Mean Corpuscular Volume 78 fL (79-100) Mean Corpuscular Hemoglobin 26 pg (25-35) Mean Corpuscular Hemoglobin Concent 33 g/dL (31-37) Red Cell Distribution Width 23.3 % (11.5-14.5) Platelet Count 127 x10^3/uL (140-400) Neutrophils (%) (Auto) 51 % (31-73) Lymphocytes (%) (Auto) 38 % (24-48) Monocytes (%) (Auto) 8 % (0-9) Eosinophils (%) (Auto) 2 % (0-3) Basophils (%) (Auto) 1 % (0-3) Neutrophils # (Auto) 2.5 x10^3/uL (1.8-7.7) Lymphocytes # (Auto) 1.9 x10^3/uL (1.0-4.8) Monocytes # (Auto) 0.4 x10^3/uL (0.0-1.1) Eosinophils # (Auto) 0.1 x10^3/uL (0.0-0.7) Basophils # (Auto) 0.0 x10^3/uL (0.0-0.2) Sodium Level 139 mmol/L (136-145) Potassium Level 3.8 mmol/L (3.5-5.1) Chloride Level 101 mmol/L (98-107) Carbon Dioxide Level 30 mmol/L (21-32) Anion Gap 8 (6-14) Blood Urea Nitrogen 11 mg/dL (7-20) Creatinine 0.6 mg/dL (0.6-1.0) Estimated GFR (Cockcroft-Gault) 107.6 Glucose Level 96 mg/dL (70-99) Calcium Level 8.5 mg/dL (8.5-10.1) Medications Current Medications Ondansetron HCl (Zofran) 4 mg 1X ONCE IVP Last administered on 10/08/19at 22:25; Start 10/08/19 at 22:30; Stop 10/08/19 at 22:31; Status DC Multivitamins 10 ml/Thiamine HCl 100 mg/Folic Acid 1 mg/Sodium Chloride 1,011.2 ml @ 1,000 mls/ hr 1X ONCE IV Last administered on 10/08/19at 22:34; Start 10/08/19 at 23:00; Stop 10/09/19 at 00:00; Status DC Potassium Chloride (Klor-Con) 40 meq 1X ONCE PO ; Start 10/09/19 at 00:00; Stop 10/09/19 at 00:01; Status DC Ondansetron HCl (Zofran) 4 mg PRN Q8HRS PRN IV NAUSEA/VOMITING 1ST CHOICE; Start 10/09/19 at 00:15; Stop 10/10/19 at 00:14; Status DC Sodium Chloride 1,000 ml @ 125 mls/hr Q8H IV Last administered on 10/09/19at 17:34; Start 10/09/19 at 00:30; Stop 10/10/19 at 00:29; Status DC Potassium Chloride/Water 100 ml @ 50 mls/hr 1X ONCE IV ; Start 10/09/19 at 00 :15; Stop 10/09/19 at 02:14; Status UNV Potassium Chloride/Water 100 ml @ 100 mls/hr Q1H IV Last administered on 10/09/19at 02:31; Start 10/09/19 at 00:30; Stop 10/09/19 at 02:29; Status DC Lorazepam (Ativan Inj) 2 mg PRN Q1HR PRN IV For CIWA 8-14 Last administered on 10/11/19at 08:10; Start 10/09/19 at 03:15 Lorazepam (Ativan Inj) 4 mg PRN Q1HR PRN IV For CIWA 15 or greater Last administered on 10/11/19at 10:34; Start 10/09/19 at 03:15 Multivitamins 10 ml/Thiamine HCl 100 mg/Folic Acid 1 mg/Sodium Chloride 1,011.2 ml @ 100 mls/ hr DAILY IV Last administered on 10/10/19at 08:26; Start 10/10/19 at 09:00; Stop 10/11/19 at 08:59; Status DC Multivitamins (Thera M Plus) 1 tab DAILY PO Last administered on 10/11/19at 08:11; Start 10/11/19 at 09:00 Folic Acid (Folic Acid) 1 mg DAILY PO Last administered on 10/11/19at 08:11; Start 10/11/19 at 09:00 Thiamine Mononitrate (Vitamin B-1) 100 mg DAILY PO Last administered on 10/11/19at 08:11; Start 10/11/19 at 09:00 Lorazepam (Ativan Inj) 2 mg PRN Q1HR PRN IV For CIWA 8-14; Start 10/09/19 at 16:45 Lorazepam (Ativan Inj) 4 mg PRN Q1HR PRN IV For CIWA 15 or greater; Start 10/09/19 at 16:45 Haloperidol Lactate (Haldol Inj) 5 mg PRN Q4HRS PRN IVP Hallucinatns,Confusn,Delirium Last administered on 10/10/19at 13:41; Start 10/09/19 at 16:45 Diphenhydramine HCl (Benadryl) 25 mg PRN Q15MIN PRN IVP EPS symptoms 2'Haldol admin; Start 10/09/19 at 16:45 Clonidine HCl (Catapres) 0.1 mg PRN Q1HR PRN PO SBP > 180 or DBP > 100, MRX3; Start 10/09/19 at 16:45 Active Scripts Active Librax Capsule (Chlordiazepoxide/Clidinium Br) 1 Each Capsule 1 Cap PO TID Vitals/I & O Vital Sign - Last 24 Hours 10/10/19 10/10/19 10/10/19 10/10/19 14:44 19:00 20:04 23:03 Temp 97.6 98.4 98.3 97.6 98.4 98.3 Pulse 78 83 98 Resp 18 18 18 B/P (MAP) 152/89 (110) 126/80 (95) 134/87 (103) Pulse Ox 99 100 100 O2 Delivery Room Air Room Air Room Air Room Air 10/11/19 10/11/19 10/11/19 03:10 07:00 08:00 Temp 97.7 97.9 97.7 97.9 Pulse 74 72 Resp 17 18 B/P (MAP) 147/88 (107) 139/90 (106) Pulse Ox 95 100 O2 Delivery Room Air Room Air Room Air Intake and Output 10/10/19 10/10/19 10/11/19 15:00 23:00 07:00 Intake Total 240 ml Output Total 2550 ml 850 ml Balance -2550 ml -610 ml MARIAELENA JENSEN MD Oct 11, 2019 12:01
[2019-10-11 15:00] VITALS: BP 120/72
[2019-10-11 19:41] VITALS: BP 122/72
[2019-10-11 22:21] VITALS: BP 142/85
[2019-10-12 03:50] VITALS: BP 167/98
[2019-10-12 04:43] LABS: BASO % 1 % (0-3); EOS # 0.1 x10^3/uL (0.0-0.7); EOS % 2 % (0-3); HEMOGLOBIN 10.4 g/dL (12.0-15.5); LYMPH # 1.4 x10^3/uL (1.0-4.8); LYMPH % 27 % (24-48); MEAN CORPUSCULAR HEMOGLOBIN 26 pg (25-35); MEAN CORPUSCULAR HGB CONC 32 g/dL (31-37); MEAN CORPUSCULAR VOLUME 79 fL (79-100); MONO # 0.3 x10^3/uL (0.0-1.1); MONO % 6 % (0-9); NEUT # 3.4 x10^3/uL (1.8-7.7); NEUT % 64 % (31-73); PLATELET COUNT 129 x10^3/uL (140-400); RED BLOOD COUNT 4.05 x10^6/uL (3.50-5.40); RED CELL DISTRIBUTION WIDTH 23.1 % (11.5-14.5); WHITE BLOOD COUNT 5.3 x10^3/uL (4.0-11.0)
[2019-10-12 05:18] LABS: CALCIUM 8.9 mg/dL (8.5-10.1); CREATININE 0.7 mg/dL (0.6-1.0); GFR 90.1; POTASSIUM 3.3 mmol/L (3.5-5.1)
[2019-10-12 07:00] VITALS: BP 144/95
[2019-10-12] MEDS: THIAMINE 100 MG TABLET. PO SCH (08:20)
[2019-10-12] MEDS: MULTIVITAMIN with MINERAL TABLET. PO SCH (08:21)
[2019-10-12] MEDS: FOLIC ACID 1 MG TABLET. PO SCH (08:21)
--- NOTE | 2019-10-12 09:00 | PDOC ---
PROGRESS NOTES Chief Complaint Chief Complaint Severe alcohol withdrawal Hypertension Prior tobacco abuse Hypokalemia Thrombocytopenia History of Present Illness History of Present Illness Ms Nicole is a 44yo F w/ PMHx ETOH abuse presented with alcohol intoxication, right ankle pain and help with alcohol detox. She also fell a week ago and has a fractured foot, has boot available 10/09: Patient seen and examined, would like to go to rehab 10/10: She is drowsy today, CIWA still 8 currently. She has not been out of bed yet. No CP or SOB. Overnight no events. Afebrile CIWA 15-17 now. No chest pain or shortness of breath. Platelets 129, potassium 3.3, magnesium 1.8. She is dressed in street clothes, refuses to wear telemetry and has been intermittently confused. wants to leave and go back to work, asking for oxycodone for her foot. when she goes home, advised she cannot drink while taking opioid pain medications. Plan: Cont inpatient for worsening ETOH withdrawal symptoms. D/C telemetry Vitals Vitals Vital Signs Date Time Temp Pulse Resp B/P (MAP) Pulse Ox O2 Delivery O2 Flow Rate FiO2 10/12/19 08:00 Room Air 10/12/19 07:00 97.5 76 18 144/95 (111) 98 97.5 Physical Exam General: Alert, Oriented X3, Other (Shaky) Heart: Regular rate, Normal S1 Lungs: Clear Abdomen: Normal bowel sounds Extremities: No clubbing, No cyanosis Skin: No rashes, No breakdown Labs LABS Laboratory Tests Test 10/12/19 03:55 White Blood Count 5.3 x10^3/uL (4.0-11.0) Red Blood Count 4.05 x10^6/uL (3.50-5.40) Hemoglobin 10.4 g/dL (12.0-15.5) Hematocrit 32.0 % (36.0-47.0) Mean Corpuscular Volume 79 fL (79-100) Mean Corpuscular Hemoglobin 26 pg (25-35) Mean Corpuscular Hemoglobin Concent 32 g/dL (31-37) Red Cell Distribution Width 23.1 % (11.5-14.5) Platelet Count 129 x10^3/uL (140-400) Neutrophils (%) (Auto) 64 % (31-73) Lymphocytes (%) (Auto) 27 % (24-48) Monocytes (%) (Auto) 6 % (0-9) Eosinophils (%) (Auto) 2 % (0-3) Basophils (%) (Auto) 1 % (0-3) Neutrophils # (Auto) 3.4 x10^3/uL (1.8-7.7) Lymphocytes # (Auto) 1.4 x10^3/uL (1.0-4.8) Monocytes # (Auto) 0.3 x10^3/uL (0.0-1.1) Eosinophils # (Auto) 0.1 x10^3/uL (0.0-0.7) Basophils # (Auto) 0.0 x10^3/uL (0.0-0.2) Sodium Level 141 mmol/L (136-145) Potassium Level 3.3 mmol/L (3.5-5.1) Chloride Level 103 mmol/L (98-107) Carbon Dioxide Level 28 mmol/L (21-32) Anion Gap 10 (6-14) Blood Urea Nitrogen 14 mg/dL (7-20) Creatinine 0.7 mg/dL (0.6-1.0) Estimated GFR (Cockcroft-Gault) 90.1 Glucose Level 106 mg/dL (70-99) Calcium Level 8.9 mg/dL (8.5-10.1) Assessment and Plan Assessmemt and Plan Problems Medical Problems: (1) Alcohol intoxication Status: Acute (2) Cuboid fracture Status: Acute (3) Fracture of talus of right ankle, closed Status: Acute (4) Hypokalemia Status: Acute Comment Review of Relevant I have reviewed the following items sandra (where applicable) has been applied. Labs Laboratory Tests Test 10/11/19 04:15 10/12/19 03:55 White Blood Count 4.9 x10^3/uL (4.0-11.0) 5.3 x10^3/uL (4.0-11.0) Red Blood Count 4.17 x10^6/uL (3.50-5.40) 4.05 x10^6/uL (3.50-5.40) Hemoglobin 10.7 g/dL (12.0-15.5) 10.4 g/dL (12.0-15.5) Hematocrit 32.5 % (36.0-47.0) 32.0 % (36.0-47.0) Mean Corpuscular Volume 78 fL (79-100) 79 fL (79-100) Mean Corpuscular Hemoglobin 26 pg (25-35) 26 pg (25-35) Mean Corpuscular Hemoglobin Concent 33 g/dL (31-37) 32 g/dL (31-37) Red Cell Distribution Width 23.3 % (11.5-14.5) 23.1 % (11.5-14.5) Platelet Count 127 x10^3/uL (140-400) 129 x10^3/uL (140-400) Neutrophils (%) (Auto) 51 % (31-73) 64 % (31-73) Lymphocytes (%) (Auto) 38 % (24-48) 27 % (24-48) Monocytes (%) (Auto) 8 % (0-9) 6 % (0-9) Eosinophils (%) (Auto) 2 % (0-3) 2 % (0-3) Basophils (%) (Auto) 1 % (0-3) 1 % (0-3) Neutrophils # (Auto) 2.5 x10^3/uL (1.8-7.7) 3.4 x10^3/uL (1.8-7.7) Lymphocytes # (Auto) 1.9 x10^3/uL (1.0-4.8) 1.4 x10^3/uL (1.0-4.8) Monocytes # (Auto) 0.4 x10^3/uL (0.0-1.1) 0.3 x10^3/uL (0.0-1.1) Eosinophils # (Auto) 0.1 x10^3/uL (0.0-0.7) 0.1 x10^3/uL (0.0-0.7) Basophils # (Auto) 0.0 x10^3/uL (0.0-0.2) 0.0 x10^3/uL (0.0-0.2) Sodium Level 139 mmol/L (136-145) 141 mmol/L (136-145) Potassium Level 3.8 mmol/L (3.5-5.1) 3.3 mmol/L (3.5-5.1) Chloride Level 101 mmol/L (98-107) 103 mmol/L (98-107) Carbon Dioxide Level 30 mmol/L (21-32) 28 mmol/L (21-32) Anion Gap 8 (6-14) 10 (6-14) Blood Urea Nitrogen 11 mg/dL (7-20) 14 mg/dL (7-20) Creatinine 0.6 mg/dL (0.6-1.0) 0.7 mg/dL (0.6-1.0) Estimated GFR (Cockcroft-Gault) 107.6 90.1 Glucose Level 96 mg/dL (70-99) 106 mg/dL (70-99) Calcium Level 8.5 mg/dL (8.5-10.1) 8.9 mg/dL (8.5-10.1) Laboratory Tests Test 10/12/19 03:55 White Blood Count 5.3 x10^3/uL (4.0-11.0) Red Blood Count 4.05 x10^6/uL (3.50-5.40) Hemoglobin 10.4 g/dL (12.0-15.5) Hematocrit 32.0 % (36.0-47.0) Mean Corpuscular Volume 79 fL (79-100) Mean Corpuscular Hemoglobin 26 pg (25-35) Mean Corpuscular Hemoglobin Concent 32 g/dL (31-37) Red Cell Distribution Width 23.1 % (11.5-14.5) Platelet Count 129 x10^3/uL (140-400) Neutrophils (%) (Auto) 64 % (31-73) Lymphocytes (%) (Auto) 27 % (24-48) Monocytes (%) (Auto) 6 % (0-9) Eosinophils (%) (Auto) 2 % (0-3) Basophils (%) (Auto) 1 % (0-3) Neutrophils # (Auto) 3.4 x10^3/uL (1.8-7.7) Lymphocytes # (Auto) 1.4 x10^3/uL (1.0-4.8) Monocytes # (Auto) 0.3 x10^3/uL (0.0-1.1) Eosinophils # (Auto) 0.1 x10^3/uL (0.0-0.7) Basophils # (Auto) 0.0 x10^3/uL (0.0-0.2) Sodium Level 141 mmol/L (136-145) Potassium Level 3.3 mmol/L (3.5-5.1) Chloride Level 103 mmol/L (98-107) Carbon Dioxide Level 28 mmol/L (21-32) Anion Gap 10 (6-14) Blood Urea Nitrogen 14 mg/dL (7-20) Creatinine 0.7 mg/dL (0.6-1.0) Estimated GFR (Cockcroft-Gault) 90.1 Glucose Level 106 mg/dL (70-99) Calcium Level 8.9 mg/dL (8.5-10.1) Medications Current Medications Ondansetron HCl (Zofran) 4 mg 1X ONCE IVP Last administered on 10/08/19at 22:25; Start 10/08/19 at 22:30; Stop 10/08/19 at 22:31; Status DC Multivitamins 10 ml/Thiamine HCl 100 mg/Folic Acid 1 mg/Sodium Chloride 1,011.2 ml @ 1,000 mls/ hr 1X ONCE IV Last administered on 10/08/19at 22:34; Start 10/08/19 at 23:00; Stop 10/09/19 at 00:00; Status DC Potassium Chloride (Klor-Con) 40 meq 1X ONCE PO ; Start 10/09/19 at 00:00; Stop 10/09/19 at 00:01; Status DC Ondansetron HCl (Zofran) 4 mg PRN Q8HRS PRN IV NAUSEA/VOMITING 1ST CHOICE; S tart 10/09/19 at 00:15; Stop 10/10/19 at 00:14; Status DC Sodium Chloride 1,000 ml @ 125 mls/hr Q8H IV Last administered on 10/09/19at 17:34; Start 10/09/19 at 00:30; Stop 10/10/19 at 00:29; Status DC Potassium Chloride/Water 100 ml @ 50 mls/hr 1X ONCE IV ; Start 10/09/19 at 00:15; Stop 10/09/19 at 02:14; Status UNV Potassium Chloride/Water 100 ml @ 100 mls/hr Q1H IV Last administered on 10/09/19at 02:31; Start 10/09/19 at 00:30; Stop 10/09/19 at 02:29; Status DC Lorazepam (Ativan Inj) 2 mg PRN Q1HR PRN IV For CIWA 8-14 Last administered on 10/11/19at 08:10; Start 10/09/19 at 03:15; Stop 10/11/19 at 13:18; Status DC Lorazepam (Ativan Inj) 4 mg PRN Q1HR PRN IV For CIWA 15 or greater Last administered on 10/11/19at 10:34; Start 10/09/19 at 03:15; Stop 10/11/19 at 13:18; Status DC Multivitamins 10 ml/Thiamine HCl 100 mg/Folic Acid 1 mg/Sodium Chloride 1,011.2 ml @ 100 mls/ hr DAILY IV Last administered on 10/10/19 08:26; Start 10/10/19 at 09:00; Stop 10/11/19 at 08:59; Status DC Multivitamins (Thera M Plus) 1 tab DAILY PO Last administered on 10/12/19 08:21; Start 10/11/19 at 09:00 Folic Acid (Folic Acid) 1 mg DAILY PO Last administered on 10/12/19 08:21; Start 10/11/19 at 09:00 Thiamine Mononitrate (Vitamin B-1) 100 mg DAILY PO Last administered on 10/12/19at 08:20; Start 10/11/19 at 09:00 Lorazepam (Ativan Inj) 2 mg PRN Q1HR PRN IV For CIWA 8-14 Last administered on 10/11/19at 13:37; Start 10/09/19 at 16:45 Lorazepam (Ativan Inj) 4 mg PRN Q1HR PRN IV For CIWA 15 or greater Last administered on 10/12/19at 08:21; Start 10/09/19 at 16:45 Haloperidol Lactate (Haldol Inj) 5 mg PRN Q4HRS PRN IVP Hallucinatns,Confusn,Delirium Last administered on 10/10/19at 13:41; Start 10/09/19 at 16:45 Diphenhydramine HCl (Benadryl) 25 mg PRN Q15MIN PRN IVP EPS symptoms 2'Haldol admin; Start 10/09/19 at 16:45 Clonidine HCl (Catapres) 0.1 mg PRN Q1HR PRN PO SBP > 180 or DBP > 100, MRX3; Start 10/09/19 at 16:45 Active Scripts Active Librax Capsule (Chlordiazepoxide/Clidinium Br) 1 Each Capsule 1 Cap PO TID Vitals/I & O Vital Sign - Last 24 Hours 10/11/19 10/11/19 10/11/19 10/11/19 11:00 15:00 19:41 20:00 Temp 97.8 97.8 97.8 97.8 Pulse 80 82 91 Resp 18 18 B/P (MAP) 134/84 (101) 120/72 (88) 122/72 (89) Pulse Ox 100 100 96 O2 Delivery Room Air Room Air Room Air Room Air 10/11/19 10/12/19 10/12/19 10/12/19 22:21 03:50 07:00 08:00 Temp 98.1 98.2 97.5 98.1 98.2 97.5 Pulse 83 71 76 Resp 16 18 B/P (MAP) 142/85 (104) 167/98 (121) 144/95 (111) Pulse Ox 96 96 98 O2 Delivery Room Air Room Air Room Air Room Air Intake and Output 10/11/19 10/11/19 10/12/19 15:00 23:00 07:00 Intake Total 240 ml 1020 ml Output Total 750 ml Balance -750 ml 240 ml 1020 ml MARIAELENA JENSEN MD Oct 12, 2019 09:00
[2019-10-12] MEDS: MAGNESIUM OXIDE 400 MG TABLET PO SCH (09:06)
[2019-10-12] MEDS ORDERED: POTASSIUM CHLORIDE 20 MEQ TABLET.ER. PO ONE (09:30)
[2019-10-12 11:00] VITALS: BP 147/98
[2019-10-12 15:00] VITALS: BP 138/90
[2019-10-12 19:20] VITALS: BP 155/107
[2019-10-13 03:22] VITALS: BP 159/115
[2019-10-13] MEDS: HALOPERIDOL LACTATE 5 MG/ML VIAL. IVP PRN (03:29)
[2019-10-13 07:00] VITALS: BP 125/84
[2019-10-13 08:10] LABS: BASO % 0 % (0-3); EOS # 0.1 x10^3/uL (0.0-0.7); EOS % 1 % (0-3); HEMATOCRIT 33.5 % (36.0-47.0); HEMOGLOBIN 10.7 g/dL (12.0-15.5); LYMPH # 1.9 x10^3/uL (1.0-4.8); LYMPH % 31 % (24-48); MEAN CORPUSCULAR HEMOGLOBIN 26 pg (25-35); MEAN CORPUSCULAR HGB CONC 32 g/dL (31-37); MEAN CORPUSCULAR VOLUME 81 fL (79-100); MONO # 0.6 x10^3/uL (0.0-1.1); MONO % 9 % (0-9); NEUT # 3.6 x10^3/uL (1.8-7.7); NEUT % 58 % (31-73); PLATELET COUNT 115 x10^3/uL (140-400); RED BLOOD COUNT 4.16 x10^6/uL (3.50-5.40); RED CELL DISTRIBUTION WIDTH 24.3 % (11.5-14.5); WHITE BLOOD COUNT 6.2 x10^3/uL (4.0-11.0)
[2019-10-13 08:15] LABS: CALCIUM 9.2 mg/dL (8.5-10.1); CREATININE 0.6 mg/dL (0.6-1.0); GFR 107.6; POTASSIUM 3.2 mmol/L (3.5-5.1)
--- NOTE | 2019-10-13 09:19 | PDOC ---
PROGRESS NOTES Chief Complaint Chief Complaint Severe alcohol withdrawal Hypertension Prior tobacco abuse Hypokalemia Thrombocytopenia History of Present Illness History of Present Illness Ms Nicole is a 44yo F w/ PMHx ETOH abuse presented with alcohol intoxication, right ankle pain and help with alcohol detox. She also fell a week ago and has a fractured foot, has boot available 10/09: Patient seen and examined, would like to go to rehab 10/10: She is drowsy today, CIWA still 8 currently. She has not been out of bed yet. No CP or SOB. 10/11: Overnight no events. Afebrile CIWA 15-17 now. No chest pain or shortness of breath. Platelets 129, potassium 3.3, magnesium 1.8. She is dressed in street clothes, refuses to wear telemetry and has been intermittently confused. Still somewhat confused. K 3.2, Mg 1.5. Medications reconciled. No CP or SOB. Plan: Cont inpatient for worsening ETOH withdrawal symptoms D/C telemetry Vitals Vitals Vital Signs Date Time Temp Pulse Resp B/P (MAP) Pulse Ox O2 Delivery O2 Flow Rate FiO2 10/13/19 07:00 97.7 65 20 125/84 (98) 100 Room Air 97.7 Physical Exam General: Alert, Oriented X3, Other (Shaky) Heart: Regular rate, Normal S1 Lungs: Clear Abdomen: Normal bowel sounds Extremities: No clubbing, No cyanosis Skin: No rashes, No breakdown Labs LABS Laboratory Tests Test 10/13/19 07:45 White Blood Count 6.2 x10^3/uL (4.0-11.0) Red Blood Count 4.16 x10^6/uL (3.50-5.40) Hemoglobin 10.7 g/dL (12.0-15.5) Hematocrit 33.5 % (36.0-47.0) Mean Corpuscular Volume 81 fL (79-100) Mean Corpuscular Hemoglobin 26 pg (25-35) Mean Corpuscular Hemoglobin Concent 32 g/dL (31-37) Red Cell Distribution Width 24.3 % (11.5-14.5) Platelet Count 115 x10^3/uL (140-400) Neutrophils (%) (Auto) 58 % (31-73) Lymphocytes (%) (Auto) 31 % (24-48) Monocytes (%) (Auto) 9 % (0-9) Eosinophils (%) (Auto) 1 % (0-3) Basophils (%) (Auto) 0 % (0-3) Neutrophils # (Auto) 3.6 x10^3/uL (1.8-7.7) Lymphocytes # (Auto) 1.9 x10^3/uL (1.0-4.8) Monocytes # (Auto) 0.6 x10^3/uL (0.0-1.1) Eosinophils # (Auto) 0.1 x10^3/uL (0.0-0.7) Basophils # (Auto) 0.0 x10^3/uL (0.0-0.2) Sodium Level 141 mmol/L (136-145) Potassium Level 3.2 mmol/L (3.5-5.1) Chloride Level 104 mmol/L (98-107) Carbon Dioxide Level 26 mmol/L (21-32) Anion Gap 11 (6-14) Blood Urea Nitrogen 8 mg/dL (7-20) Creatinine 0.6 mg/dL (0.6-1.0) Estimated GFR (Cockcroft-Gault) 107.6 Glucose Level 92 mg/dL (70-99) Calcium Level 9.2 mg/dL (8.5-10.1) Assessment and Plan Assessmemt and Plan Problems Medical Problems: (1) Alcohol intoxication Status: Acute (2) Cuboid fracture Status: Acute (3) Fracture of talus of right ankle, closed Status: Acute (4) Hypokalemia Status: Acute Comment Review of Relevant I have reviewed the following items sandra (where applicable) has been applied. Labs Laboratory Tests Test 10/12/19 03:55 10/13/19 07:45 White Blood Count 5.3 x10^3/uL (4.0-11.0) 6.2 x10^3/uL (4.0-11.0) Red Blood Count 4.05 x10^6/uL (3.50-5.40) 4.16 x10^6/uL (3.50-5.40) Hemoglobin 10.4 g/dL (12.0-15.5) 10.7 g/dL (12.0-15.5) Hematocrit 32.0 % (36.0-47.0) 33.5 % (36.0-47.0) Mean Corpuscular Volume 79 fL (79-100) 81 fL (79-100) Mean Corpuscular Hemoglobin 26 pg (25-35) 26 pg (25-35) Mean Corpuscular Hemoglobin Concent 32 g/dL (31-37) 32 g/dL (31-37) Red Cell Distribution Width 23.1 % (11.5-14.5) 24.3 % (11.5-14.5) Platelet Count 129 x10^3/uL (140-400) 115 x10^3/uL (140-400) Neutrophils (%) (Auto) 64 % (31-73) 58 % (31-73) Lymphocytes (%) (Auto) 27 % (24-48) 31 % (24-48) Monocytes (%) (Auto) 6 % (0-9) 9 % (0-9) Eosinophils (%) (Auto) 2 % (0-3) 1 % (0-3) Basophils (%) (Auto) 1 % (0-3) 0 % (0-3) Neutrophils # (Auto) 3.4 x10^3/uL (1.8-7.7) 3.6 x10^3/uL (1.8-7.7) Lymphocytes # (Auto) 1.4 x10^3/uL (1.0-4.8) 1.9 x10^3/uL (1.0-4.8) Monocytes # (Auto) 0.3 x10^3/uL (0.0-1.1) 0.6 x10^3/uL (0.0-1.1) Eosinophils # (Auto) 0.1 x10^3/uL (0.0-0.7) 0.1 x10^3/uL (0.0-0.7) Basophils # (Auto) 0.0 x10^3/uL (0.0-0.2) 0.0 x10^3/uL (0.0-0.2) Sodium Level 141 mmol/L (136-145) 141 mmol/L (136-145) Potassium Level 3.3 mmol/L (3.5-5.1) 3.2 mmol/L (3.5-5.1) Chloride Level 103 mmol/L (98-107) 104 mmol/L (98-107) Carbon Dioxide Level 28 mmol/L (21-32) 26 mmol/L (21-32) Anion Gap 10 (6-14) 11 (6-14) Blood Urea Nitrogen 14 mg/dL (7-20) 8 mg/dL (7-20) Creatinine 0.7 mg/dL (0.6-1.0) 0.6 mg/dL (0.6-1.0) Estimated GFR (Cockcroft-Gault) 90.1 107.6 Glucose Level 106 mg/dL (70-99) 92 mg/dL (70-99) Calcium Level 8.9 mg/dL (8.5-10.1) 9.2 mg/dL (8.5-10.1) Laboratory Tests Test 10/13/19 07:45 White Blood Count 6.2 x10^3/uL (4.0-11.0) Red Blood Count 4.16 x10^6/uL (3.50-5.40) Hemoglobin 10.7 g/dL (12.0-15.5) Hematocrit 33.5 % (36.0-47.0) Mean Corpuscular Volume 81 fL (79-100) Mean Corpuscular Hemoglobin 26 pg (25-35) Mean Corpuscular Hemoglobin Concent 32 g/dL (31-37) Red Cell Distribution Width 24.3 % (11.5-14.5) Platelet Count 115 x10^3/uL (140-400) Neutrophils (%) (Auto) 58 % (31-73) Lymphocytes (%) (Auto) 31 % (24-48) Monocytes (%) (Auto) 9 % (0-9) Eosinophils (%) (Auto) 1 % (0-3) Basophils (%) (Auto) 0 % (0-3) Neutrophils # (Auto) 3.6 x10^3/uL (1.8-7.7) Lymphocytes # (Auto) 1.9 x10^3/uL (1.0-4.8) Monocytes # (Auto) 0.6 x10^3/uL (0.0-1.1) Eosinophils # (Auto) 0.1 x10^3/uL (0.0-0.7) Basophils # (Auto) 0.0 x10^3/uL (0.0-0.2) Sodium Level 141 mmol/L (136-145) Potassium Level 3.2 mmol/L (3.5-5.1) Chloride Level 104 mmol/L (98-107) Carbon Dioxide Level 26 mmol/L (21-32) Anion Gap 11 (6-14) Blood Urea Nitrogen 8 mg/dL (7-20) Creatinine 0.6 mg/dL (0.6-1.0) Estimated GFR (Cockcroft-Gault) 107.6 Glucose Level 92 mg/dL (70-99) Calcium Level 9.2 mg/dL (8.5-10.1) Medications Current Medications Ondansetron HCl (Zofran) 4 mg 1X ONCE IVP Last administered on 10/08/19at 22:25; Start 10/08/19 at 22:30; Stop 10/08/19 at 22:31; Status DC Multivitamins 10 ml/Thiamine HCl 100 mg/Folic Acid 1 mg/Sodium Chloride 1,011.2 ml @ 1,000 mls/ hr 1X ONCE IV Last administered on 10/08/19at 22:34; Start 10/08/19 at 23:00; Stop 10/09/19 at 00:00; Status DC Potassium Chloride (Klor-Con) 40 meq 1X ONCE PO ; Start 10/09/19 at 00:00; Stop 10/09/19 at 00:01; Status DC Ondansetron HCl (Zofran) 4 mg PRN Q8HRS PRN IV NAUSEA/VOMITING 1ST CHOICE; Start 10/09/19 at 00:15; Stop 10/10/19 at 00:14; Status DC Sodium Chloride 1,000 ml @ 125 mls/hr Q8H IV Last administered on 10/09/19at 17:34; Start 10/09/19 at 00:30; Stop 10/10/19 at 00:29; Status DC Potassium Chloride/Water 100 ml @ 50 mls/hr 1X ONCE IV ; Start 10/09/19 at 00:15; Stop 10/09/19 at 02:14; Status UNV Potassium Chloride/Water 100 ml @ 100 mls/hr Q1H IV Last administered on 10/09/19at 02:31; Start 10/09/19 at 00:30; Stop 10/09/19 at 02:29; Status DC Lorazepam (Ativan Inj) 2 mg PRN Q1HR PRN IV For CIWA 8-14 Last administered on 10/11/19at 08:10; Start 10/09/19 at 03:15; Stop 10/11/19 at 13:18; Status DC Lorazepam (Ativan Inj) 4 mg PRN Q1HR PRN IV For CIWA 15 or greater Last administered on 10/11/19at 10:34; Start 10/09/19 at 03:15; Stop 10/11/19 at 13:18; Status DC Multivitamins 10 ml/Thiamine HCl 100 mg/Folic Acid 1 mg/Sodium Chloride 1,011.2 ml @ 100 mls/ hr DAILY IV Last administered on 10/10/19at 08:26; Start 10/10/19 at 09:00; Stop 10/11/19 at 08:59; Status DC Multivitamins (Thera M Plus) 1 tab DAILY PO Last administered on 10/12/19at 08:21; Start 10/11/19 at 09:00 Folic Acid (Folic Acid) 1 mg DAILY PO Last administered on 10/12/19at 08:21; Start 10/11/19 at 09:00 Thiamine Mononitrate (Vitamin B-1) 100 mg DAILY PO Last administered on 10/12/19at 08:20; Start 10/11/19 at 09:00 Lorazepam (Ativan Inj) 2 mg PRN Q1HR PRN IV For CIWA 8-14 Last administered on 10/12/19at 17:17; Start 10/09/19 at 16:45 Lorazepam (Ativan Inj) 4 mg PRN Q1HR PRN IV For CIWA 15 or greater Last administered on 10/13/19at 00:18; Start 10/09/19 at 16:45 Haloperidol Lactate (Haldol Inj) 5 mg PRN Q4HRS PRN IVP Hallucinatns,Confusn,Delirium Last administered on 10/13/19at 03:29; Start 10/09/19 at 16:45 Diphenhydramine HCl (Benadryl) 25 mg PRN Q15MIN PRN IVP EPS symptoms 2'Haldol admin; Start 10/09/19 at 16:45 Clonidine HCl (Catapres) 0.1 mg PRN Q1HR PRN PO SBP > 180 or DBP > 100, MRX3 Last administered on 10/13/19at 02:45; Start 10/09/19 at 16:45 Potassium Chloride (Klor-Con) 40 meq 1X ONCE PO Last administered on 10/12/19at 09:06; Start 10/12/19 at 09:30; Stop 10/12/19 at 09:31; Status DC Magnesium Oxide (Magnesium Oxide) 400 mg DAILY PO Last administered on 10/12/19at 09:06; Start 10/12/19 at 09:30 Active Scripts Active Librax Capsule (Chlordiazepoxide/Clidinium Br) 1 Each Capsule 1 Cap PO TID Vitals/I & O Vital Sign - Last 24 Hours 10/12/19 10/12/19 10/12/19 10/12/19 11:00 15:00 19:20 20:00 Temp 97.8 97.5 98.2 97.8 97.5 98.2 Pulse 91 80 87 Resp 20 16 B/P (MAP) 147/98 (114) 138/90 (106) 155/107 (123) Pulse Ox 98 100 100 O2 Delivery Room Air Room Air Room Air Room Air 10/13/19 10/13/19 10/13/19 02:45 03:22 07:00 Temp 98.2 97.7 98.2 97.7 Pulse 91 65 Resp 20 20 B/P (MAP) 159/115 159/115 (130) 125/84 (98) Pulse Ox 98 100 O2 Delivery Room Air Room Air Intake and Output 10/12/19 10/12/19 10/13/19 15:00 23:00 07:00 Intake Total 50 ml 800 ml Balance 50 ml 800 ml MARIAELENA JENSEN MD Oct 13, 2019 09:19
[2019-10-13] MEDS ORDERED: POTASSIUM CHLORIDE 20 MEQ TABLET.ER. PO ONE ×2 (09:30→12:00)
[2019-10-13 10:38] VITALS: BP 129/92
[2019-10-13] MEDS ORDERED: SERT50TA PO (11:10)
[2019-10-13] MEDS ORDERED: TRAZ-118 PO (11:10)
[2019-10-13] MEDS ORDERED: NALT50TA PO (11:10)
[2019-10-13] MEDS ORDERED: GABA300C18 PO (11:10)
[2019-10-13] MEDS ORDERED: MAGNESIUM SULFATE 4GM 100 ML IV ONE (12:00)
[2019-10-13] MEDS: MAGNESIUM OXIDE 400 MG TABLET PO SCH (12:30)
[2019-10-13] MEDS: FOLIC ACID 1 MG TABLET. PO SCH (12:30)
[2019-10-13] MEDS: THIAMINE 100 MG TABLET. PO SCH (12:30)
[2019-10-13] MEDS: MULTIVITAMIN with MINERAL TABLET. PO SCH (12:30)
[2019-10-13] MEDS: GABAPENTIN 300 MG CAPSULE. PO SCH ×2 (12:41→20:37)
[2019-10-13] MEDS: SERTRALINE 50 MG TABLET. PO SCH (12:43)
[2019-10-13 15:09] VITALS: BP 142/85
[2019-10-13 19:52] VITALS: BP 126/80
[2019-10-13] MEDS ORDERED: traZODone 50 MG TABLET. PO SCH (21:00)
[2019-10-13 23:19] VITALS: BP 116/71
[2019-10-14 03:55] VITALS: BP 138/92
[2019-10-14 04:38] LABS: BASO % 1 % (0-3); EOS # 0.2 x10^3/uL (0.0-0.7); EOS % 3 % (0-3); HEMATOCRIT 33.7 % (36.0-47.0); LYMPH # 2.1 x10^3/uL (1.0-4.8); LYMPH % 35 % (24-48); MEAN CORPUSCULAR HEMOGLOBIN 26 pg (25-35); MEAN CORPUSCULAR HGB CONC 33 g/dL (31-37); MEAN CORPUSCULAR VOLUME 80 fL (79-100); MONO # 0.5 x10^3/uL (0.0-1.1); MONO % 8 % (0-9); NEUT # 3.2 x10^3/uL (1.8-7.7); NEUT % 54 % (31-73); PLATELET COUNT 128 x10^3/uL (140-400); RED BLOOD COUNT 4.23 x10^6/uL (3.50-5.40); RED CELL DISTRIBUTION WIDTH 24.2 % (11.5-14.5)
[2019-10-14 05:08] LABS: CALCIUM 8.7 mg/dL (8.5-10.1); CREATININE 0.6 mg/dL (0.6-1.0); GFR 107.6; POTASSIUM 4.1 mmol/L (3.5-5.1)
[2019-10-14 07:28] VITALS: BP 162/98
[2019-10-14] MEDS: MULTIVITAMIN with MINERAL TABLET. PO SCH (08:10)
[2019-10-14] MEDS: THIAMINE 100 MG TABLET. PO SCH (08:10)
[2019-10-14] MEDS: MAGNESIUM OXIDE 400 MG TABLET PO SCH (08:10)
[2019-10-14] MEDS: GABAPENTIN 300 MG CAPSULE. PO SCH (08:11)
[2019-10-14] MEDS: SERTRALINE 50 MG TABLET. PO SCH (08:11)
[2019-10-14] MEDS: FOLIC ACID 1 MG TABLET. PO SCH (08:11)
--- NOTE | 2019-10-14 09:14 | PDOC ---
PROGRESS NOTES Chief Complaint Chief Complaint Severe alcohol withdrawal Hypertension Prior tobacco abuse Hypokalemia Thrombocytopenia History of Present Illness History of Present Illness Ms Nicole is a 44yo F w/ PMHx ETOH abuse presented with alcohol intoxication, right ankle pain and help with alcohol detox. She also fell a week ago and has a fractured foot, has boot available 10/09: Patient seen and examined, would like to go to rehab 10/10: She is drowsy today, CIWA still 8 currently. She has not been out of bed yet. No CP or SOB. 10/11: Overnight no events. Afebrile CIWA 15-17 now. No chest pain or shortness of breath. Platelets 129, potassium 3.3, magnesium 1.8. She is dressed in street clothes, refuses to wear telemetry and has been intermittently confused. 10/12: Still somewhat confused. K 3.2, Mg 1.5. Medications reconciled. No CP or SOB. Clear headed today. pain controlled. lytes normalized. Back on trazodone, zoloft, depade, gabapentin. Has outpatient ETOH rehab f/u in 72 hours. Plan: D/C with refills. 3 days of prn ativan. ETOH cessation Ankle stabilization for 2 weeks Vitals Vitals Vital Signs Date Time Temp Pulse Resp B/P (MAP) Pulse Ox O2 Delivery O2 Flow Rate FiO2 10/14/19 07:28 98.1 75 18 162/98 (119) 100 Room Air 98.1 Physical Exam General: Alert, Oriented X3, Other (Shaky) Heart: Regular rate, Normal S1 Lungs: Clear Abdomen: Normal bowel sounds Extremities: No clubbing, No cyanosis Skin: No rashes, No breakdown Labs LABS Laboratory Tests Test 10/14/19 03:40 White Blood Count 6.0 x10^3/uL (4.0-11.0) Red Blood Count 4.23 x10^6/uL (3.50-5.40) Hemoglobin 11.0 g/dL (12.0-15.5) Hematocrit 33.7 % (36.0-47.0) Mean Corpuscular Volume 80 fL (79-100) Mean Corpuscular Hemoglobin 26 pg (25-35) Mean Corpuscular Hemoglobin Concent 33 g/dL (31-37) Red Cell Distribution Width 24.2 % (11.5-14.5) Platelet Count 128 x10^3/uL (140-400) Neutrophils (%) (Auto) 54 % (31-73) Lymphocytes (%) (Auto) 35 % (24-48) Monocytes (%) (Auto) 8 % (0-9) Eosinophils (%) (Auto) 3 % (0-3) Basophils (%) (Auto) 1 % (0-3) Neutrophils # (Auto) 3.2 x10^3/uL (1.8-7.7) Lymphocytes # (Auto) 2.1 x10^3/uL (1.0-4.8) Monocytes # (Auto) 0.5 x10^3/uL (0.0-1.1) Eosinophils # (Auto) 0.2 x10^3/uL (0.0-0.7) Basophils # (Auto) 0.0 x10^3/uL (0.0-0.2) Sodium Level 137 mmol/L (136-145) Potassium Level 4.1 mmol/L (3.5-5.1) Chloride Level 101 mmol/L (98-107) Carbon Dioxide Level 27 mmol/L (21-32) Anion Gap 9 (6-14) Blood Urea Nitrogen 12 mg/dL (7-20) Creatinine 0.6 mg/dL (0.6-1.0) Estimated GFR (Cockcroft-Gault) 107.6 Glucose Level 85 mg/dL (70-99) Calcium Level 8.7 mg/dL (8.5-10.1) Assessment and Plan Assessmemt and Plan Problems Medical Problems: (1) Alcohol intoxication Status: Acute (2) Cuboid fracture Status: Acute (3) Fracture of talus of right ankle, closed Status: Acute (4) Hypokalemia Status: Acute Comment Review of Relevant I have reviewed the following items sandra (where applicable) has been applied. Labs Laboratory Tests Test 10/13/19 07:45 10/14/19 03:40 White Blood Count 6.2 x10^3/uL (4.0-11.0) 6.0 x10^3/uL (4.0-11.0) Red Blood Count 4.16 x10^6/uL (3.50-5.40) 4.23 x10^6/uL (3.50-5.40) Hemoglobin 10.7 g/dL (12.0-15.5) 11.0 g/dL (12.0-15.5) Hematocrit 33.5 % (36.0-47.0) 33.7 % (36.0-47.0) Mean Corpuscular Volume 81 fL (79-100) 80 fL (79-100) Mean Corpuscular Hemoglobin 26 pg (25-35) 26 pg (25-35) Mean Corpuscular Hemoglobin Concent 32 g/dL (31-37) 33 g/dL (31-37) Red Cell Distribution Width 24.3 % (11.5-14.5) 24.2 % (11.5-14.5) Platelet Count 115 x10^3/uL (140-400) 128 x10^3/uL (140-400) Neutrophils (%) (Auto) 58 % (31-73) 54 % (31-73) Lymphocytes (%) (Auto) 31 % (24-48) 35 % (24-48) Monocytes (%) (Auto) 9 % (0-9) 8 % (0-9) Eosinophils (%) (Auto) 1 % (0-3) 3 % (0-3) Basophils (%) (Auto) 0 % (0-3) 1 % (0-3) Neutrophils # (Auto) 3.6 x10^3/uL (1.8-7.7) 3.2 x10^3/uL (1.8-7.7) Lymphocytes # (Auto) 1.9 x10^3/uL (1.0-4.8) 2.1 x10^3/uL (1.0-4.8) Monocytes # (Auto) 0.6 x10^3/uL (0.0-1.1) 0.5 x10^3/uL (0.0-1.1) Eosinophils # (Auto) 0.1 x10^3/uL (0.0-0.7) 0.2 x10^3/uL (0.0-0.7) Basophils # (Auto) 0.0 x10^3/uL (0.0-0.2) 0.0 x10^3/uL (0.0-0.2) Sodium Level 141 mmol/L (136-145) 137 mmol/L (136-145) Potassium Level 3.2 mmol/L (3.5-5.1) 4.1 mmol/L (3.5-5.1) Chloride Level 104 mmol/L (98-107) 101 mmol/L (98-107) Carbon Dioxide Level 26 mmol/L (21-32) 27 mmol/L (21-32) Anion Gap 11 (6-14) 9 (6-14) Blood Urea Nitrogen 8 mg/dL (7-20) 12 mg/dL (7-20) Creatinine 0.6 mg/dL (0.6-1.0) 0.6 mg/dL (0.6-1.0) Estimated GFR (Cockcroft-Gault) 107.6 107.6 Glucose Level 92 mg/dL (70-99) 85 mg/dL (70-99) Calcium Level 9.2 mg/dL (8.5-10.1) 8.7 mg/dL (8.5-10.1) Magnesium Level 1.5 mg/dL (1.8-2.4) Laboratory Tests Test 10/14/19 03:40 White Blood Count 6.0 x10^3/uL (4.0-11.0) Red Blood Count 4.23 x10^6/uL (3.50-5.40) Hemoglobin 11.0 g/dL (12.0-15.5) Hematocrit 33.7 % (36.0-47.0) Mean Corpuscular Volume 80 fL (79-100) Mean Corpuscular Hemoglobin 26 pg (25-35) Mean Corpuscular Hemoglobin Concent 33 g/dL (31-37) Red Cell Distribution Width 24.2 % (11.5-14.5) Platelet Count 128 x10^3/uL (140-400) Neutrophils (%) (Auto) 54 % (31-73) Lymphocytes (%) (Auto) 35 % (24-48) Monocytes (%) (Auto) 8 % (0-9) Eosinophils (%) (Auto) 3 % (0-3) Basophils (%) (Auto) 1 % (0-3) Neutrophils # (Auto) 3.2 x10^3/uL (1.8-7.7) Lymphocytes # (Auto) 2.1 x10^3/uL (1.0-4.8) Monocytes # (Auto) 0.5 x10^3/uL (0.0-1.1) Eosinophils # (Auto) 0.2 x10^3/uL (0.0-0.7) Basophils # (Auto) 0.0 x10^3/uL (0.0-0.2) Sodium Level 137 mmol/L (136-145) Potassium Level 4.1 mmol/L (3.5-5.1) Chloride Level 101 mmol/L (98-107) Carbon Dioxide Level 27 mmol/L (21-32) Anion Gap 9 (6-14) Blood Urea Nitrogen 12 mg/dL (7-20) Creatinine 0.6 mg/dL (0.6-1.0) Estimated GFR (Cockcroft-Gault) 107.6 Glucose Level 85 mg/dL (70-99) Calcium Level 8.7 mg/dL (8.5-10.1) Medications Current Medications Ondansetron HCl (Zofran) 4 mg 1X ONCE IVP Last administered on 10/08/19at 22:25; Start 10/08/19 at 22:30; Stop 10/08/19 at 22:31; Status DC Multivitamins 10 ml/Thiamine HCl 100 mg/Folic Acid 1 mg/Sodium Chloride 1,011.2 ml @ 1,000 mls/ hr 1X ONCE IV Last administered on 10/08/19at 22:34; Start 10/08/19 at 23:00; Stop 10/09/19 at 00:00; Status DC Potassium Chloride (Klor-Con) 40 meq 1X ONCE PO ; Start 10/09/19 at 00:00; Stop 10/09/19 at 00:01; Status DC Ondansetron HCl (Zofran) 4 mg PRN Q8HRS PRN IV NAUSEA/VOMITING 1ST CHOICE; Start 10/09/19 at 00:15; Stop 10/10/19 at 00:14; Status DC Sodium Chloride 1,000 ml @ 125 mls/hr Q8H IV Last administered on 10/09/19at 17:34; Start 10/09/19 at 00:30; Stop 10/10/19 at 00:29; Status DC Potassium Chloride/Water 100 ml @ 50 mls/hr 1X ONCE IV ; Start 10/09/19 at 00:15; Stop 10/09/19 at 02:14; Status UNV Potassium Chloride/Water 100 ml @ 100 mls/hr Q1H IV Last administered on 10/09/19at 02:31; Start 10/09/19 at 00:30; Stop 10/09/19 at 02:29; Status DC Lorazepam (Ativan Inj) 2 mg PRN Q1HR PRN IV For CIWA 8-14 Last administered on 10/11/19at 08:10; Start 10/09/19 at 03:15; Stop 10/11/19 at 13:18; Status DC Lorazepam (Ativan Inj) 4 mg PRN Q1HR PRN IV For CIWA 15 or greater Last administered on 10/11/19at 10:34; Start 10/09/19 at 03:15; Stop 10/11/19 at 13:18; Status DC Multivitamins 10 ml/Thiamine HCl 100 mg/Folic Acid 1 mg/Sodium Chloride 1,011.2 ml @ 100 mls/ hr DAILY IV Last administered on 10/10/19at 08:26; Start 10/10/19 at 09:00; Stop 10/11/19 at 08:59; Status DC Multivitamins (Thera M Plus) 1 tab DAILY PO Last administered on 10/14/19at 08:10; Start 10/11/19 at 09:00 Folic Acid (Folic Acid) 1 mg DAILY PO Last administered on 10/14/19at 08:11; Start 10/11/19 at 09:00 Thiamine Mononitrate (Vitamin B-1) 100 mg DAILY PO Last administered on 10/14/19 at 08:10; Start 10/11/19 at 09:00 Lorazepam (Ativan Inj) 2 mg PRN Q1HR PRN IV For CIWA 8-14 Last administered on 10/14/19at 08:11; Start 10/09/19 at 16:45 Lorazepam (Ativan Inj) 4 mg PRN Q1HR PRN IV For CIWA 15 or greater Last administered on 10/13/19at 00:18; Start 10/09/19 at 16:45 Haloperidol Lactate (Haldol Inj) 5 mg PRN Q4HRS PRN IVP Hallucinatns,Confusn,Delirium Last administered on 10/13/19at 03:29; Start 10/09/19 at 16:45 Diphenhydramine HCl (Benadryl) 25 mg PRN Q15MIN PRN IVP EPS symptoms 2'Haldol admin; Start 10/09/19 at 16:45 Clonidine HCl (Catapres) 0.1 mg PRN Q1HR PRN PO SBP > 180 or DBP > 100, MRX3 Last administered on 10/13/19at 02:45; Start 10/09/19 at 16:45 Potassium Chloride (Klor-Con) 40 meq 1X ONCE PO Last administered on 10/12/19at 09:06; Start 10/12/19 at 09:30; Stop 10/12/19 at 09:31; Status DC Magnesium Oxide (Magnesium Oxide) 400 mg DAILY PO Last administered on 10/14/19at 08:10; Start 10/12/19 at 09:30 Potassium Chloride (Klor-Con) 40 meq 1X ONCE PO Last administered on 10/13/19at 12:42; Start 10/13/19 at 09:30; Stop 10/13/19 at 09:31; Status DC Potassium Chloride (Klor-Con) 40 meq 1X ONCE PO Last administered on 10/13/19at 12:30; Start 10/13/19 at 12:00; Stop 10/13/19 at 12:01; Status DC Magnesium Sulfate 100 ml @ 25 mls/hr 1X ONCE IV Last administered on 10/13/19at 12:35; Start 10/13/19 at 12:00; Stop 10/13/19 at 15:59; Status DC Gabapentin (Neurontin) 300 mg BID PO Last administered on 10/14/19at 08:11; Start 10/13/19 at 12:00 Naltrexone HCl (ReVia) 50 mg DAILY PO ; Start 10/14/19 at 14:00 Sertraline HCl (Zoloft) 50 mg DAILY PO Last administered on 10/14/19at 08:11; Start 10/13/19 at 12:00 Trazodone HCl (Desyrel) 50 mg QHS PO ; Start 10/13/19 at 21:00 Active Scripts Active Librax Capsule (Chlordiazepoxide/Clidinium Br) 1 Each Capsule 1 Cap PO TID Reported Trazodone Hcl 50 Mg Tablet 1 Tab PO QHS Naltrexone Hcl 50 Mg Tablet 1 Tab PO DAILY Gabapentin (Gabapentin) 300 Mg Capsule 300 Mg PO BID Zoloft (Sertraline Hcl) 50 Mg Tablet 1 Tab PO DAILY Vitals/I & O Vital Sign - Last 24 Hours 10/13/19 10/13/19 10/13/19 10/13/19 10:38 15:09 19:52 20:15 Temp 97.8 98.1 97.7 97.8 98.1 97.7 Pulse 68 70 70 Resp 20 20 20 B/P (MAP) 129/92 (104) 142/85 (104) 126/80 (95) Pulse Ox 100 100 100 O2 Delivery Room Air Room Air Room Air Room Air 10/13/19 10/14/19 10/14/19 23:19 03:55 07:28 Temp 97.7 98.5 98.1 97.7 98.5 98.1 Pulse 66 90 75 Resp 20 20 18 B/P (MAP) 116/71 (86) 138/92 (107) 162/98 (119) Pulse Ox 100 100 100 O2 Delivery Room Air Room Air Room Air Intake and Output 10/13/19 10/13/19 10/14/19 15:00 23:00 07:00 Intake Total 120 ml 240 ml Balance 120 ml 240 ml MARIAELENA JENSEN MD Oct 14, 2019 09:14
[2019-10-14] MEDS ORDERED: IBUPROFEN 400 MG TABLET. PO PRN (10:45)
[2019-10-14] MEDS ORDERED: LORazepam 1 MG TABLET PO PRN (11:15)
[2019-10-14 11:21] VITALS: BP 135/91
[2019-10-14] MEDS ORDERED: GABA300C18 PO (12:34)
[2019-10-14] MEDS ORDERED: CLON0.1T12 PO (12:34)
[2019-10-14] MEDS ORDERED: LORA-434 PO (12:34)
[2019-10-14] MEDS ORDERED: SERT50TA PO (12:34)
[2019-10-14] MEDS ORDERED: TRAZ-118 PO (12:34)
[2019-10-14] MEDS ORDERED: NALT50TA PO (12:34)
--- NOTE | 2019-10-14 12:37 | PDOC3 ---
Discharge Summary Visit Information Date of Admission: Oct 10, 2019 Date of Discharge: Oct 14, 2019 Admitting Diagnosis: ETOH withdrawal Final Diagnosis Problems Medical Problems: (1) Alcohol intoxication Status: Acute (2) Cuboid fracture Status: Acute (3) Fracture of talus of right ankle, closed Status: Acute (4) Hypokalemia Status: Acute Brief Hospital Course Allergies Allergies Coded Allergies Type Severity Reaction Last Updated Verified No Known Drug Allergies 04/06/18 No Vital Signs Vital Signs Date Time Temp Pulse Resp B/P (MAP) Pulse Ox O2 Delivery O2 Flow Rate FiO2 10/14/19 11:21 98.2 70 18 135/91 (106) 100 Room Air 98.2 Lab Results Laboratory Tests Test 10/13/19 07:45 10/14/19 03:40 White Blood Count 6.2 x10^3/uL (4.0-11.0) 6.0 x10^3/uL (4.0-11.0) Red Blood Count 4.16 x10^6/uL (3.50-5.40) 4.23 x10^6/uL (3.50-5.40) Hemoglobin 10.7 g/dL (12.0-15.5) 11.0 g/dL (12.0-15.5) Hematocrit 33.5 % (36.0-47.0) 33.7 % (36.0-47.0) Mean Corpuscular Volume 81 fL (79-100) 80 fL (79-100) Mean Corpuscular Hemoglobin 26 pg (25-35) 26 pg (25-35) Mean Corpuscular Hemoglobin Concent 32 g/dL (31-37) 33 g/dL (31-37) Red Cell Distribution Width 24.3 % (11.5-14.5) 24.2 % (11.5-14.5) Platelet Count 115 x10^3/uL (140-400) 128 x10^3/uL (140-400) Neutrophils (%) (Auto) 58 % (31-73) 54 % (31-73) Lymphocytes (%) (Auto) 31 % (24-48) 35 % (24-48) Monocytes (%) (Auto) 9 % (0-9) 8 % (0-9) Eosinophils (%) (Auto) 1 % (0-3) 3 % (0-3) Basophils (%) (Auto) 0 % (0-3) 1 % (0-3) Neutrophils # (Auto) 3.6 x10^3/uL (1.8-7.7) 3.2 x10^3/uL (1.8-7.7) Lymphocytes # (Auto) 1.9 x10^3/uL (1.0-4.8) 2.1 x10^3/uL (1.0-4.8) Monocytes # (Auto) 0.6 x10^3/uL (0.0-1.1) 0.5 x10^3/uL (0.0-1.1) Eosinophils # (Auto) 0.1 x10^3/uL (0.0-0.7) 0.2 x10^3/uL (0.0-0.7) Basophils # (Auto) 0.0 x10^3/uL (0.0-0.2) 0.0 x10^3/uL (0.0-0.2) Sodium Level 141 mmol/L (136-145) 137 mmol/L (136-145) Potassium Level 3.2 mmol/L (3.5-5.1) 4.1 mmol/L (3.5-5.1) Chloride Level 104 mmol/L (98-107) 101 mmol/L (98-107) Carbon Dioxide Level 26 mmol/L (21-32) 27 mmol/L (21-32) Anion Gap 11 (6-14) 9 (6-14) Blood Urea Nitrogen 8 mg/dL (7-20) 12 mg/dL (7-20) Creatinine 0.6 mg/dL (0.6-1.0) 0.6 mg/dL (0.6-1.0) Estimated GFR (Cockcroft-Gault) 107.6 107.6 Glucose Level 92 mg/dL (70-99) 85 mg/dL (70-99) Calcium Level 9.2 mg/dL (8.5-10.1) 8.7 mg/dL (8.5-10.1) Magnesium Level 1.5 mg/dL (1.8-2.4) 2.1 mg/dL (1.8-2.4) Laboratory Tests Test 10/14/19 03:40 White Blood Count 6.0 x10^3/uL (4.0-11.0) Red Blood Count 4.23 x10^6/uL (3.50-5.40) Hemoglobin 11.0 g/dL (12.0-15.5) Hematocrit 33.7 % (36.0-47.0) Mean Corpuscular Volume 80 fL (79-100) Mean Corpuscular Hemoglobin 26 pg (25-35) Mean Corpuscular Hemoglobin Concent 33 g/dL (31-37) Red Cell Distribution Width 24.2 % (11.5-14.5) Platelet Count 128 x10^3/uL (140-400) Neutrophils (%) (Auto) 54 % (31-73) Lymphocytes (%) (Auto) 35 % (24-48) Monocytes (%) (Auto) 8 % (0-9) Eosinophils (%) (Auto) 3 % (0-3) Basophils (%) (Auto) 1 % (0-3) Neutrophils # (Auto) 3.2 x10^3/uL (1.8-7.7) Lymphocytes # (Auto) 2.1 x10^3/uL (1.0-4.8) Monocytes # (Auto) 0.5 x10^3/uL (0.0-1.1) Eosinophils # (Auto) 0.2 x10^3/uL (0.0-0.7) Basophils # (Auto) 0.0 x10^3/uL (0.0-0.2) Sodium Level 137 mmol/L (136-145) Potassium Level 4.1 mmol/L (3.5-5.1) Chloride Level 101 mmol/L (98-107) Carbon Dioxide Level 27 mmol/L (21-32) Anion Gap 9 (6-14) Blood Urea Nitrogen 12 mg/dL (7-20) Creatinine 0.6 mg/dL (0.6-1.0) Estimated GFR (Cockcroft-Gault) 107.6 Glucose Level 85 mg/dL (70-99) Calcium Level 8.7 mg/dL (8.5-10.1) Magnesium Level 2.1 mg/dL (1.8-2.4) Brief Hospital Course Ms Nicole is a 44yo F w/ PMHx ETOH abuse presented with alcohol intoxication, right ankle pain and help with alcohol detox. She also fell a week ago and has a fractured foot, has boot available 10/09: Patient seen and examined, would like to go to rehab 10/10: She is drowsy today, CIWA still 8 currently. She has not been out of bed yet. No CP or SOB. 10/11: Overnight no events. Afebrile CIWA 15-17 now. No chest pain or shortness of breath. Platelets 129, potassium 3.3, magnesium 1.8. She is dressed in street clothes, refuses to wear telemetry and has been intermittently confused. 10/12: Still somewhat confused. K 3.2, Mg 1.5. Medications reconciled. No CP or SOB. Clear headed today. pain controlled. lytes normalized. Back on trazodone, zoloft, depade, gabapentin. Has outpatient ETOH rehab f/u in 72 hours. Problem list: Severe alcohol withdrawal Hypertension Prior tobacco abuse Hypokalemia Hypomagnesemia Thrombocytopenia Plan: D/C with refills. 3 days of prn ativan. ETOH cessation Ankle stabilization for 2 weeks Discharge Information Condition at Discharge: Improved Follow Up: Weeks (1) Disposition/Orders: D/C to Home Scheduled Gabapentin (Gabapentin ) 300 Mg Capsule, 300 MG PO BID for NEUROGENIC PAIN/Cut Cravings for 30 Days, #60 Ref 2 Prescribed by: MARIAELENA JENSEN MD on 10/14/19 1234 Naltrexone Hcl (Naltrexone Hcl) 50 Mg Tablet, 1 TAB PO DAILY for Cut Cravings for 30 Days, #30 Ref 2 Prescribed by: MARIAELENA JENSEN MD on 10/14/19 1234 Sertraline Hcl (Zoloft) 50 Mg Tablet, 1 TAB PO DAILY for Insomnia for 30 Days, #30 Ref 2 Prescribed by: MARIAELENA JENSEN MD on 10/14/19 1234 Trazodone Hcl (Trazodone Hcl) 50 Mg Tablet, 1 TAB PO QHS for insomnia for 30 Days, #30 Ref 2 Prescribed by: MARIAELENA JENSEN MD on 10/14/19 1234 Scheduled PRN Clonidine Hcl (Catapres) 0.1 Mg Tablet, 0.1 MG PO PRN Q1HR PRN for SBP > 180 or DBP > 100, MRX3 for 14 Days, #14 For withdrawal symptoms Prescribed by: MARIAELENA JENSEN MD on 10/14/19 1234 Lorazepam (Ativan) 1 Mg Tablet, 1 MG PO PRN Q6HRS PRN for ANXIETY / AGITATION for 3 Days, #9 Ref 0 Prescribed by: MARIAELENA EJNSEN MD on 10/14/19 1234 Discontinued Medications Chlordiazepoxide/Clidinium Br (Librax Capsule) 1 Each Capsule, 1 CAP PO TID, #30 Ref 3 Prescribed by: MEGHANN DE LEON on 04/08/18 0851 MARIAELENA JENSEN MD Oct 14, 2019 12:37
[2019-10-14] MEDS ORDERED: NALTREXONE HCL 50 MG TABLET. PO SCH (14:00)
== END 2019-10-14 14:45 | disposition home or self-care (01) | DRG 897 ==
LOC: ER 21:44 → 6 SOUTH 10-09 00:33 → OBSVTOIN 10-10 22:13 → 6 SOUTH 10-13 15:41
PROVIDERS: ADMIT Internal Medicine; ATTEND Internal Medicine
DX: F10.239 Alcohol dependence with withdrawal, unspecified (principal); E87.6 Hypokalemia; D69.6 Thrombocytopenia, unspecified; E83.42 Hypomagnesemia; F10.229 Alcohol dependence with intoxication, unspecified; I10 Essential (primary) hypertension; S92.131A Displaced fracture of posterior process of right talus, initial encounter for closed fracture; S92.213A Displaced fracture of cuboid bone of unspecified foot, initial encounter for closed fracture; Z87.891 Personal history of nicotine dependence
CPT/HCPCS: 36415; 51798; 73610; 73630; 80048; 80076; 80307; 81001; 81025; 83735; 85025; 96365; 96375; 99285; G0378; G0379; G0480; J1630; J2060; J2405; J3411; J3475; J3480; J3490; J7030; 97530-GP